=== PATIENT | female | born 1940 | race Caucasian/White ===

== ENCOUNTER 2018-02-22 17:03 | Emergency (ER) | payer OTHER ==
--- NOTE | 2018-02-22 18:09 | RAD REPORT ---
EXAM DESCRIPTION: CT - CTHCSPWOC - 02/22/2018 5:47 pm CLINICAL HISTORY: Fall, head and neck injury COMPARISON: None. TECHNIQUE: Axial 5 mm thick images of the head were obtained. Axial 2 mm thick images of the cervic al spine were obtained with sagittal and coronal reconstruction images generated and reviewed. All CT scans are performed using dose optimization technique as appropriate and may include automated exposure control or mA/KV adjustment according to patient size. FINDINGS: No intracranial hemorrhage, mass, edema or acute intracranial finding. No acute cortical based infarc tion. Advanced atrophy and chronic ischemic changes are present. Ventricular size is in proportion to volume loss. Physiologic and arterial calcifications are present. No extra-axial fluid collections. Mastoid air cells and paranasal sinuses are clear. No globe or orbit abnormality seen. Cervical body height and alignment are normal. C4-5 and C5-6 disc space narrowing present. No fractur e or acute bony abnormality. Spinal stenosis is present at C4-5 with very pronounced spurring. There is significant C5-6 central spinal stenosis as well. Mild to moderate C5-6 and prominent C4-5 foramin al stenosis. No facet joint alignment abnormality. Calcifications are present posterior to the spinou s processes. No acute spinous process injury. Central canal detail is inherently limited. No paraspinal mass or hematoma. IMPRESSION: Advanced atrophy and chronic ischemic change with no acute intracranial finding. Prominent cervical spine degenerative change. There is significant spinal stenosis at C4-5 and C5-6 a long with significant C4-5 foraminal stenosis. No fracture or acute cervical spine finding. Central canal detail is inherently limited.
--- NOTE | 2018-02-22 18:13 | RAD REPORT ---
EXAM DESCRIPTION: CT - Thorax Wo Con - 02/22/2018 5:47 pm CLINICAL HISTORY: Fall, chest injury, chest pain COMPARISON: Portable chest same date, CT chest July 2010 TECHNIQUE: Axial 5 mm thick images of the chest were obtained without IV contrast. All CT scans are performed using dose optimization technique as appropriate and may include automated exposure control or mA/KV adjustment according to patient size. FINDINGS: Scarring changes are present. No pulmonary contusion or acute lung parenchymal process. Po sterior left lung base and superior left upper lobe granulomas are present. Mediastinal and hilar gra nulomatous calcifications are present. No pleural thickening or pleural effusion. No pneumothorax. No abnormal mediastinal or hilar masses or lymphadenopathy seen. No pericardial thickening or effusio n. Overall assessment is limited in the absence of IV contrast. Thoracic spine degenerative changes are present. No displaced rib fracture seen. Acute thoracic compr ession fracture not suspected. No chest wall mass or abnormal axillary lymphadenopathy. IMPRESSION: No acute traumatic injuries to the chest. Nonacute findings detailed in the body of the report.
--- NOTE | 2018-02-22 18:35 | EDPHYS ---
Physician Documentation [facility] Name: Gayla Amado Age: 77 yrs Sex: Female : 1940 Arrival Date: 02/22/2018 Time: 17:09 Bed 26 Private MD: ED Physician Russell Tan HPI: 02/22 17:20 This 77 yrs old Female presents to ER via EMS with complaints of fall. cp 17:20 Details of fall: The patient fell from an upright position, while standing. cp 17:20 Onset: The symptoms/episode began/occurred today. Associated injuries: The patient cp sustained injury to the chest, specifically the left lateral chest, pain with movement. Severity of symptoms: in the emergency department the symptoms are unchanged. Historical: - Allergies: 17:37 Morphine; rk2 - PMHx: 17:37 Alzheimers; chest pain; Anxiety; constipation; COPD; GERD; Hypertension; rk2 Hypothyroidism; cognitive communication deficit; Osteoporosis; psychosis; - Immunization history:: Pneumococcal vaccine status is unknown, Flu vaccine status is unknown. - Social history:: Smoking status: unknown. ROS: 17:30 Constitutional: Negative for fever. cp 17:30 Cardiovascular: Positive for chest pain, of the left lateral chest. 17:30 Unable to obtain ROS due to baseline dementia. Exam: 17:35 Head/Face: Normocephalic, atraumatic. cp 17:35 Constitutional: The patient appears in no acute distress, alert, awake, non-diaphoretic, non-toxic, well developed, well nourished. 17:35 Eyes: Pupils: equal, round, and reactive to light and accomodation, Extraocular movements: intact throughout, Conjunctiva: normal, no exudate, no injection, Sclera: no appreciated abnormality, Lids and lashes: appear normal, bilaterally. 17:35 ENT: External ear(s): are unremarkable, Ear canal(s): are normal, clear, TM's: bulging, is not appreciated, bilaterally, dullness, bilaterally, erythema, is not appreciated, bilaterally, Nose: is normal, Mouth: is normal, Posterior pharynx: is normal, airway is patent. 17:35 Neck: C-spine: vertebral tenderness, is not appreciated, crepitus, is not appreciated, ROM/movement: is normal, is supple, without pain, no range of motions limitations, no nuchal rigidity. 17:35 Chest/axilla: Inspection: normal, Palpation: crepitus, is not appreciated, tenderness, that is mild, of the left lateral chest below breast. 17:35 Cardiovascular: Rate: bradycardic, Rhythm: regular. 17:35 Respiratory: the patient does not display signs of respiratory distress, Respirations: normal, no use of accessory muscles, no retractions, no splinting, no tachypnea, labored breathing, is not present, Breath sounds: are clear throughout, no decreased breath sounds, no stridor, no wheezing. 17:35 Abdomen/GI: Inspection: abdomen appears normal, Bowel sounds: active, all quadrants, Palpation: abdomen is soft and non-tender, in all quadrants, rebound tenderness, is not appreciated, voluntary guarding, is not appreciated, involuntary guarding, is not appreciated. 17:35 Back: vertebral tenderness, is not appreciated. 17:35 Skin: cellulitis, is not appreciated, injury, is not appreciated, no rash present. 17:35 Neuro: Orientation: no acute changes, per family, Mentation: no acute changes, per family, able to follow commands, Motor: moves all fours, strength is normal. Vital Signs: 17:09 BP 116 / 57; Pulse 53; Resp 17; Temp 98.1; Pulse Ox 98% ; rk2 18:15 BP 121 / 63; Pulse 53; Resp 17; Pulse Ox 98% ; rk2 MDM: 17:19 Patient medically screened. cp 18:00 Differential diagnosis: closed head injury, contusion, fracture, multiple trauma. cp 18:33 Data reviewed: vital signs, nurses notes, radiologic studies, CT scan. cp 18:33 Counseling: I had a detailed discussion with the patient and/or guardian regarding: the cp historical points, exam findings, and any diagnostic results supporting the discharge/admit diagnosis, radiology results, to return to the emergency department if symptoms worsen or persist or if there are any questions or concerns that arise at home. 02/22 17:12 Order name: CT Head C Spine; Complete Time: 18:28 cp 02/22 17:12 Order name: CT Chest Wo Con; Complete Time: 18:28 cp Administered Medications: 18:45 Drug: traMADol 50 mg Route: PO; rk2 18:54 Follow up: Response: Given \T\ DC rk2 Disposition: 19:45 Chart complete. 02/23 15:35 Co-signature as Attending Physician, Russell Tan MD I agree with the assessment and wa plan of care. Disposition: 02/22/18 18:34 Discharged to Home. Impression: Other slipping, tripping and stumbling and falls, Chest pain, unspecified - Left, s/p fall. - Condition is Stable. - Discharge Instructions: Chest Wall Pain, Fall Prevention and Home Safety. - Prescriptions for Tramadol 50 mg Oral Tablet - take 1 tablet by ORAL route every 8 hours as needed; 15 tablet. - Medication Reconciliation Form, Thank You Letter, Antibiotic Education, Prescription Opioid Use form. - Follow up: Private Physician; When: 1 - 2 days; Reason: Recheck today's complaints. - Problem is new. - Symptoms are unchanged. Signatures: Dispatcher [employer] EDMS Ej Garcia PA PA cp Appiah, William, MD MD wa Kidder, Rhonda RN RN rk2
--- NOTE | 2018-02-22 18:35 | ER ---
Nurse's Notes [facility] Name: Gayla Amado Age: 77 yrs Sex: Female : 1940 Arrival Date: 02/22/2018 Time: 17:09 Bed 26 Private MD: Diagnosis: Other slipping, tripping and stumbling and falls;Chest pain, unspecified-Left, s/p fall Presentation: 02/22 17:09 Presenting complaint: EMS states: Pt. arrived by EMS from [facility]... rk2 pt. was standing and lost her balance falling and hitting the left side of her chest. Pt. c/o of left side chest wall pain. Per EMS no LOC nor did pt. hit her head. Normal mental status is confused. Transition of care: patient was received from another setting of care (long-term care facility). Onset of symptoms was February 22, 2018. Care prior to arrival: None. 17:09 Method Of Arrival: EMS: [facility] rk2 17:09 Acuity: ALESSIA 4 rk2 Triage Assessment: 17:18 General: Appears in no apparent distress. Behavior is calm, cooperative. Pain: rk2 Complains of pain in Left rib pain. Neuro: Level of Consciousness is alert, obeys commands, Oriented to person. Respiratory: Airway is patent Respiratory effort is even, unlabored, Respiratory pattern is regular, symmetrical, Breath sounds are clear bilaterally. Derm: Skin is pink, warm \T\ dry. Musculoskeletal: Reports Left rib pain, no obvious deformity or bruising noted. Historical: - Allergies: 17:37 Morphine; rk2 - PMHx: 17:37 Alzheimers; chest pain; Anxiety; constipation; COPD; GERD; Hypertension; rk2 Hypothyroidism; cognitive communication deficit; Osteoporosis; psychosis; - Immunization history:: Pneumococcal vaccine status is unknown, Flu vaccine status is unknown. - Social history:: Smoking status: unknown. Screenin:17 Abuse screen: Denies threats or abuse. Nutritional screening: No deficits noted. rk2 Tuberculosis screening: No symptoms or risk factors identified. Fall Risk Fall in past 12 months (25 points). Secondary diagnosis (15 points). Assessment: 17:20 General: Appears in no apparent distress. Behavior is calm, cooperative. rk2 17:20 Pain: Complains of pain in Left side rib pain. rk2 18:50 Reassessment: Called report to [place] \T\ [facility]... pt. ambulated out rk2 with son \T\ her side. Vital Signs: 17:09 BP 116 / 57; Pulse 53; Resp 17; Temp 98.1; Pulse Ox 98% ; rk2 18:15 BP 121 / 63; Pulse 53; Resp 17; Pulse Ox 98% ; rk2 ED Course: 17:09 Patient arrived in ED. rk2 17:11 Ej Garcia PA is PHCP. cp 17:11 Russell Tan MD is Attending Physician. cp 17:11 Triage completed. rk2 17:17 Patient has correct armband on for positive identification. Placed in gown. Bed in low rk2 position. Call light in reach. Side rails up X2. 17:17 Arm band placed on. rk2 17:25 Shira Clancy, LEONA is Primary Nurse. rk2 17:[address] jg1 17:35 CT Chest Wo Con Sent. rk2 17:35 CT Head C Spine Sent. rk2 17:47 CT Head C Spine In Process Unspecified. EDMS 17:47 CT Chest Wo Con In Process Unspecified. EDMS 18:51 No provider procedures requiring assistance completed. Patient did not have IV access rk2 during this emergency room visit. Administered Medications: 18:45 Drug: traMADol 50 mg Route: PO; rk2 18:54 Follow up: Response: Given \T\ DC rk2 Outcome: 18:34 Discharge ordered by . cp 18:51 [facility] to [facility] rk2 18:51 Condition: good 18:51 Discharge instructions given to family, Prescriptions given X 1. 19:24 Patient left the ED. rk2 Signatures: Dispatcher [employer] EDErendira Ferreira jg1 Ej Garcia PA PA cp Shira Clancy, RN RN rk2
[2018-02-22] MEDS ORDERED: TRAMADOL HCL 50 MG TAB ONE (18:40)
[2018-02-22 19:29] VITALS: TEMP 98.1; O2SAT 98
[2018-02-22 19:30] VITALS: BP 121/63
== END 2018-02-22 19:24 | disposition home or self-care (01) ==
LOC: ER 17:03
DX: R07.9 Chest pain, unspecified (principal); W01.0XXA Fall on same level from slipping, tripping and stumbling without subsequent striking against object, initial encounter; Y93.89 Activity, other specified; Z88.5 Allergy status to narcotic agent; I10 Essential (primary) hypertension; G30.9 Alzheimer's disease, unspecified; F02.80 Dementia in other diseases classified elsewhere, unspecified severity, without behavioral disturbance, psychotic disturbance, mood disturbance, and anxiety
CPT/HCPCS: 70450; 71250; 72125; 99284

== ENCOUNTER 2018-10-12 21:37 | Emergency (ER) | payer OTHER ==
[2018-10-12 23:18] LABS: Absolute Lymphocytes (CBC) 1.1 K/uL (0.7-4.9); Absolute Monocytes 1.3 K/uL (0.1-1.3); Absolute Neutrophil 6.4 K/uL (1.8-8.0); Basophils % 0.6 % (0-1.3); Eosinophils % 0.9 % (0-4.4); Hematocrit 46.1 % (36.0-45.0); Lymphocytes % 12.3 % (15.3-44.8); MCH 31.6 pg (27.0-35.0); MCV 93.7 fL (80-100); MPV 8.4 fL (7.6-11.3); Monocytes % 14.3 % (3.3-12.3); RBC Red Blood Cell Count 4.92 M/uL (3.86-4.86)
[2018-10-12 23:19] LABS: Protime INR 1.13
[2018-10-12] MEDS ORDERED: NA CHLORIDE 0.9% 1,000 ML ONE (23:25)
[2018-10-12 23:31] LABS: ALT/SGPT 49 U/L (12-78); AST/SGOT 70 U/L (15-37); Albumin 3.3 g/dL (3.4-5.0); Alkaline Phosphatase 62 U/L (45-117); BUN Blood Urea Nitrogen 18 mg/dL (7-18); Bicarbonate 32 mmol/L (21-32); Bilirubin Direct 0.2 mg/dL (0-0.2); Bilirubin Total 0.5 mg/dL (0.2-1.0); Creatine Phosphokinase 39 U/L (26-192); Glucose Level 87 mg/dL (74-106); Lipase 279 U/L (73-393); Potassium 3.6 mmol/L (3.5-5.1); Protein, Total 7.7 g/dL (6.4-8.2); Sodium Level 141 mmol/L (136-145); Troponin (Emerg Dept Use Only) < 0.02 ng/mL (0.0-0.045)
[2018-10-12 23:36] LABS: Urine Blood 1+ (NEG); Urine Glucose NEGATIVE (NEG); Urine Protein 2+ (NEG)
[2018-10-13 00:13] LABS: Urine Bacteria LOADED /HPF (<20)
[2018-10-13 00:14] LABS: Urine Culture Reflex Order REFLEXED; Urine RBC <5 /HPF (NONE SEEN)
--- NOTE | 2018-10-13 00:58 | EDPHYS ---
Physician Documentation [facility] Name: Gayla Amado Age: 78 yrs Sex: Female : 1940 Arrival Date: 10/12/2018 Time: 21:44 Bed 2 Private MD: ED Physician Ap Montes HPI: 10/13 00:50 This 78 yrs old Female presents to ER via EMS with complaints of Altered gs Mental Status. 00:50 The patient presents with disorientation. Onset: The symptoms/episode began/occurred gs gradually, today. Possible causes: unknown. Associated signs and symptoms: Pertinent negatives: fever. Current symptoms: In the emergency department the patient's symptoms have improved, markedly. The patient has experienced similar episodes in the past, a few times. Historical: - Allergies: 10/12 22:29 Morphine; lp1 - Home Meds: 22:35 Acidophilus Oral cap daily for GI Distress/GERD [Active]; amlodipine 5 mg tab 1 tab lp1 once daily [Active]; anastrozole 1 mg Oral tab 1 tab once daily [Active]; aspirin 81 mg Oral chew 1 tab once daily [Active]; calcium carbonate-vitamin D3 600 mg(1,500mg) -400 unit oral tab twice a day [Active]; Claritin 10 mg Oral tab 1 tab daily prn [Active]; Depakote 500 mg Oral TbEC 1 tab 2 times per day [Active]; donepezil 10 mg Oral tab 2 tab nightly [Active]; Fosamax 70 mg Oral tab 1 tab once wkly [Active]; levothyroxine 200 mcg oral tab once daily [Active]; levothyroxine 25 mcg tab 1 tab once daily [Active]; Metamucil Smooth Texture Oral twice a day [Active]; Miralax 17 gram/dose Oral powd Q8H PRN [Active]; Namenda XR 28 mg Oral CSpX 1 cap once daily [Active]; omeprazole 20 mg oral cpDR once daily [Active]; Spiriva with HandiHaler 18 mcg inhalation CpDv 1 cap once daily [Active]; tizanidine 4 mg Oral tab nightly [Active]; Vasotec 5 mg Oral tab 1 tab once daily [Active]; diphenhydramine HCl 25 mg Oral tab q6h prn [Active]; - PMHx: 22:29 Alzheimers; Anxiety; chest pain; cognitive communication deficit; constipation; COPD; lp1 GERD; Hypertension; Hypothyroidism; Osteoporosis; psychosis; - Immunization history:: Adult Immunizations up to date. - Social history:: Smoking status: unknown. - Ebola Screening: : No symptoms or risks identified at this time. ROS: 10/13 00:50 Unable to obtain ROS due to baseline dementia. gs Exam: 00:50 Head/Face: Normocephalic, atraumatic. Eyes: Pupils equal round and reactive to light, gs extra-ocular motions intact. Lids and lashes normal. Conjunctiva and sclera are non-icteric and not injected. Cornea within normal limits. Periorbital areas with no swelling, redness, or edema. ENT: Nares patent. No nasal discharge, no septal abnormalities noted. Tympanic membranes are normal and external auditory canals are clear. Oropharynx with no redness, swelling, or masses, exudates, or evidence of obstruction, uvula midline. Mucous membranes moist. Neck: Trachea midline, no thyromegaly or masses palpated, and no cervical lymphadenopathy. Supple, full range of motion without nuchal rigidity, or vertebral point tenderness. No Meningismus. Chest/axilla: Normal chest wall appearance and motion. Nontender with no deformity. No lesions are appreciated. Cardiovascular: Regular rate and rhythm with a normal S1 and S2. No gallops, murmurs, or rubs. Normal PMI, no JVD. No pulse deficits. 00:50 Respiratory: Lungs have equal breath sounds bilaterally, clear to auscultation and percussion. No rales, rhonchi or wheezes noted. No increased work of breathing, no retractions or nasal flaring. Abdomen/GI: Soft, non-tender, with normal bowel sounds. No distension or tympany. No guarding or rebound. No evidence of tenderness throughout. Back: No spinal tenderness. No costovertebral tenderness. Full range of motion. Skin: Warm, dry with normal turgor. Normal color with no rashes, no lesions, and no evidence of cellulitis. MS/ Extremity: Pulses equal, no cyanosis. Neurovascular intact. Full, normal range of motion. Neuro: Awake and alert, GCS 15, oriented to person, place, time, and situation. Cranial nerves II-XII grossly intact. Motor strength 5/5 in all extremities. Sensory grossly intact. Cerebellar exam normal. Normal gait. 00:50 Constitutional: The patient appears alert, awake. 00:50 ECG was reviewed by the Attending Physician. Vital Signs: 10/12 21:55 BP 139 / 53; Pulse 67; Resp 17; Temp 97.6(O); Pulse Ox 97% on R/A; Weight 68.04 kg; lp1 23:30 BP 158 / 89; Pulse 84; Resp 20; Pulse Ox 97% on R/A; lp1 10/13 01:30 BP 172 / 73; Pulse 85; Resp 19; Pulse Ox 96% on R/A; lp1 MDM: 10/12 22:02 Patient medically screened. 10/13 00:50 Differential Diagnosis: electrolyte abnormality, pneumonia, UTI. Data reviewed: vital gs signs, nurses notes. Response to treatment: the patient's symptoms have markedly improved after treatment, and as a result, I will discharge patient. 10/12 22:05 Order name: Basic Metabolic Panel 10/12 22:05 Order name: Blood Culture Adult (2) 10/12 22:05 Order name: CBC with Diff 10/12 22:05 Order name: CPK 10/12 22:05 Order name: Lactate 10/12 22:05 Order name: LFT's 10/12 22:05 Order name: Lipase 10/12 22:05 Order name: Procalcitonin 10/12 22:05 Order name: Protime (+inr) 10/12 22:05 Order name: Troponin (emerg Dept Use Only) 10/12 22:05 Order name: Urine Microscopic Only 10/12 22:31 Order name: Urine Dipstick--Ancillary (enter results) 2 10/12 23:19 Order name: CBC with Automated Diff; Complete Time: 00:49 EDMS 10/12 23:20 Order name: Protime (+INR); Complete Time: 00:49 EDMS 10/12 22:05 Order name: Chest Single View XRAY 10/12 22:05 Order name: Accucheck; Complete Time: 22:40 10/12 22:05 Order name: Cardiac monitoring; Complete Time: 22:40 10/12 22:05 Order name: CT Head Brain wo Cont 10/12 23:31 Order name: Basic Metabolic Panel; Complete Time: 00:49 EDMS 10/12 23:31 Order name: Liver (Hepatic) Function; Complete Time: 00:49 EDMS 10/12 23:31 Order name: Creatine Phosphokinase; Complete Time: 00:49 EDMS 10/12 23:31 Order name: Troponin (Emerg Dept Use Only); Complete Time: 00:50 EDMS 10/12 23:31 Order name: Lipase; Complete Time: 00:50 EDMS 10/12 23:35 Order name: Lactate; Complete Time: 00:50 EDMS 10/12 23:37 Order name: Urine Dipstick-Ancillary; Complete Time: 00:49 EDMS 10/13 00:15 Order name: Urine Microscopic Only; Complete Time: 00:49 EDMS 10/13 00:55 Order name: Procalcitonin; Complete Time: 00:58 EDMS 10/13 02:41 Order name: Glucose, Ancillary Testing EDMS 10/12 22:05 Order name: EKG - Nurse/Tech; Complete Time: 00:53 10/12 22:05 Order name: IV Saline Lock - Large Bore; Complete Time: 23:26 gs 10/12 22:05 Order name: Labs collected and sent; Complete Time: 23:26 gs 10/12 22:05 Order name: O2 Per Protocol; Complete Time: 22:40 10/12 22:05 Order name: O2 Sat Monitoring; Complete Time: 22:40 gs 10/12 22:05 Order name: Urine Dipstick-Ancillary (obtain specimen); Complete Time: 22:40 gs EC:50 Rate is 84 beats/min. Rhythm is regular. QRS interval is normal. QT interval is normal. gs T waves are Flattened. Clinical impression: NSR w/ Non-specific ST/T Changes. Interpreted by me. Administered Medications: 10/12 23:26 Drug: NS 0.9% 1000 ml Route: IV; Rate: 1 bolus; Site: right antecubital; lp1 10/13 01:10 Drug: Rocephin - (cefTRIAXone) 1 grams Route: IVPB; Infused Over: 30 mins; Site: right lp1 antecubital; 02:00 Follow up: IV Status: Completed infusion; IV Intake: 10ml lp1 Point of Care Testing: Blood Glucose: 10/12 22:29 Blood Glucose: 107 mg/dL; lp1 Ranges: Critical Glucose Levels:Adult <50 mg/dl or >400 mg/dl <40 mg/dl or >180 mg/dl Disposition: 10/13/18 00:57 Discharged to Home. Impression: Cystitis. - Condition is Stable. - Discharge Instructions: Urinary Tract Infection, Adult. - Prescriptions for Keflex 500 mg Oral Capsule - take 1 capsule by ORAL route 3 times per day for 7 days; 21 capsule. - Medication Reconciliation Form, Thank You Letter, Antibiotic Education, Prescription Opioid Use form. - Follow up: Private Physician; When: 1 - 2 days; Reason: Re-evaluation by your physician. Signatures: Dispatcher [employer] Joseline Sorensen RN RN lp1 Ap Montes MD MD gs Corrections: (The following items were deleted from the chart) 10/13 04:05 00:57 10/13/2018 00:57 Discharged to Home. Impression: Cystitis. Condition is Stable. lp1 Forms are Medication Reconciliation Form, Thank You Letter, Antibiotic Education, Prescription Opioid Use. Follow up: Private Physician; When: 1 - 2 days; Reason: Re-evaluation by your physician. gs
--- NOTE | 2018-10-13 00:58 | ER ---
Nurse's Notes [facility] Name: Gayla Amado Age: 78 yrs Sex: Female : 1940 Arrival Date: 10/12/2018 Time: 21:44 Bed 2 Private MD: Diagnosis: Cystitis Presentation: 10/12 21:44 Presenting complaint: EMS states: Per nursing staff, patient altered, change from lp1 baseline to agitated and altered; Normally pleasantly confused; States chest x-ray was negative, patient has been running low grade fever x 2 days. Transition of care: patient was not received from another setting of care. Onset of symptoms was October 12, 2018. Risk Assessment: Do you want to hurt yourself or someone else? Patient reports no desire to harm self or others. Initial Sepsis Screen: Does the patient meet any 2 criteria? No. Patient's initial sepsis screen is negative. Does the patient have a suspected source of infection? No. Patient's initial sepsis screen is negative. Care prior to arrival: None. 21:44 Method Of Arrival: EMS: [facility] lp1 21:44 Acuity: ALESSIA 3 lp1 Historical: - Allergies: 22:29 Morphine; lp1 - Home Meds: 22:35 Acidophilus Oral cap daily for GI Distress/GERD [Active]; amlodipine 5 mg tab 1 tab lp1 once daily [Active]; anastrozole 1 mg Oral tab 1 tab once daily [Active]; aspirin 81 mg Oral chew 1 tab once daily [Active]; calcium carbonate-vitamin D3 600 mg(1,500mg) -400 unit oral tab twice a day [Active]; Claritin 10 mg Oral tab 1 tab daily prn [Active]; Depakote 500 mg Oral TbEC 1 tab 2 times per day [Active]; donepezil 10 mg Oral tab 2 tab nightly [Active]; Fosamax 70 mg Oral tab 1 tab once wkly [Active]; levothyroxine 200 mcg oral tab once daily [Active]; levothyroxine 25 mcg tab 1 tab once daily [Active]; Metamucil Smooth Texture Oral twice a day [Active]; Miralax 17 gram/dose Oral powd Q8H PRN [Active]; Namenda XR 28 mg Oral CSpX 1 cap once daily [Active]; omeprazole 20 mg oral cpDR once daily [Active]; Spiriva with HandiHaler 18 mcg inhalation CpDv 1 cap once daily [Active]; tizanidine 4 mg Oral tab nightly [Active]; Vasotec 5 mg Oral tab 1 tab once daily [Active]; diphenhydramine HCl 25 mg Oral tab q6h prn [Active]; - PMHx: 22:29 Alzheimers; Anxiety; chest pain; cognitive communication deficit; constipation; COPD; lp1 GERD; Hypertension; Hypothyroidism; Osteoporosis; psychosis; - Immunization history:: Adult Immunizations up to date. - Social history:: Smoking status: unknown. - Ebola Screening: : No symptoms or risks identified at this time. Screenin:36 Abuse screen: Denies threats or abuse. Denies injuries from another. Nutritional lp1 screening: No deficits noted. Tuberculosis screening: No symptoms or risk factors identified. Fall Risk Total Ibrahim Fall Scale indicates High Risk Score (45 or more points). Fall prevention measures have been instituted. Side Rails Up X 2 Frequent Obs/Assessments Occuring As available patient and family educated on Fall Prevention Program and Strategies. Assessment: 22:00 General: Appears in no apparent distress. Behavior is calm. Pain: Denies pain. Neuro: lp1 Level of Consciousness is awake, obeys commands, Oriented to person, Bilingual Legal Assistant are equal bilaterally Pupils are PERRLA. Cardiovascular: Patient's skin is warm and dry. Respiratory: Respiratory effort is even, Respiratory pattern is regular, Breath sounds with crackles in left upper lobe and left lower lobe. GI: Abdomen is non-distended. : Urine is cloudy, foul smell. EENT: No deficits noted. Derm: Skin is fragile, is thin, Skin is dry, Skin is normal. Musculoskeletal: No deficits noted. 23:00 Reassessment: Brief changed, blankets given; Patient fidgeting in bed. lp1 10/13 00:00 Reassessment: Patient pulling at cords connected to monitor; reoriented at this time. lp1 01:15 Reassessment: Patient's brief changed at this time; attempting to get out of bed, lp1 patient reoriented and repositioned. 01:40 Reassessment: Report called to Shonda at [facility]; states she will call back lp1 with details on transportation back to facility. 02:00 Reassessment: Shonda called back, states leaving voicemail for [employer], but may lp1 not transport patient until later this morning. 02:30 Reassessment: Shonda notified of EMS arranging for transport for patient. lp1 03:30 Reassessment: Patient appears in no apparent distress at this time. Patient lying in lp1 bed, calm; fidgeting with hands. 04:04 Reassessment: EMS at bedside for transfer. lp1 Vital Signs: 10/12 21:55 BP 139 / 53; Pulse 67; Resp 17; Temp 97.6(O); Pulse Ox 97% on R/A; Weight 68.04 kg; lp1 23:30 BP 158 / 89; Pulse 84; Resp 20; Pulse Ox 97% on R/A; lp1 10/13 01:30 BP 172 / 73; Pulse 85; Resp 19; Pulse Ox 96% on R/A; lp1 ED Course: 10/12 21:44 Patient arrived in ED. lp1 21:49 Ap Montes MD is Attending Physician. gs 21:54 Triage completed. lp1 21:54 Arm band placed on left wrist. lp1 22:13 Joseline Beebe, LEONA is Primary Nurse. lp1 22:27 Missed attempt(s): 20 gauge in left forearm. lp1 22:36 Patient has correct armband on for positive identification. Side rails up X2. Cardiac lp1 monitor on. Pulse ox on. NIBP on. 22:44 Radiology exam delayed due to PT UNABLE TO COME TO CT AT THIS TIME. vm2 23:42 Missed attempt(s): 22 gauge in right antecubital area. Bleeding controlled, band aid oe applied, catheter tip intact. 23:[address] via stretcher. kw1 23:45 Inserted saline lock: 22 gauge in right antecubital area, using aseptic technique. oe 10/13 00:11 CT completed. Pt tolerated procedure poorly. Patient moved back from [place]. kw1 01:47 No provider procedures requiring assistance completed. IV discontinued, No lp1 redness/swelling at site. Pressure dressing applied. Administered Medications: 10/12 23:26 Drug: NS 0.9% 1000 ml Route: IV; Rate: 1 bolus; Site: right antecubital; lp1 10/13 01:10 Drug: Rocephin - (cefTRIAXone) 1 grams Route: IVPB; Infused Over: 30 mins; Site: right lp1 antecubital; 02:00 Follow up: IV Status: Completed infusion; IV Intake: 10ml [facility] Point of Care Testing: Blood Glucose: 10/12 22:29 Blood Glucose: 107 mg/dL; 1 Ranges: Intake: 10/13 02:00 IV: 10ml; Total: 10ml. 1 Outcome: 00:57 Discharge ordered by . 01:47 Condition: good [facility] 04:05 Discharged to senior care. Report called to Shonda [facility] 04:05 Instructed on discharge instructions. 04:05 Patient left the ED. lp1 Addendum: 10/18/2018 08:17 Addendum: Culture Results: Positive urine culture. Bacteria is resistant to, has i w intermediate sensitivity, or is not tested against prescribed antibiotics. Report given to YUNIOR for further evaluation and then to rental clerk for follow up with patient. Phone call Attempt #1 culture report faxed to [facility]. Signatures: Magali Zuluaga RN RN Joseline Beebe RN RN [facility] Arnoldo Plunkett Guillermina Deluna [facility] Ap Montes MD MD gs Wilhelm, Kimberly kw1 Corrections: (The following items were deleted from the chart) 10/12 22:44 22:40 Patient moved to [place] via stretcher. [place] [id number] 23:49 23:42 Missed attempt(s): 22 gauge antecubital area. Bleeding controlled, band aid oe applied, catheter tip intact. oe 10/13 01:53 01:40 Reassessment: Report called to Shonda at [place] [id number]
[2018-10-13] MEDS ORDERED: CEFTRIAXONE/SWI 1gm 1 GM/10 ML SYR ONE (01:11)
--- NOTE | 2018-10-13 08:27 | EKG ---
Test Date: 2018-10-13 Test Time: 00:14:36 Dev Manager: VICTORIANO MEASUREMENT RESULTS: Intervals: Rate: 84 WA: 134 QRSD: 80 QT: 380 QTc: 449 [place]: P: 63 WA: 134 QRS: 63 T: 64 INTERPRETIVE STATEMENTS: Normal sinus rhythm Cannot rule out Anterior infarct, age undetermined Abnormal ECG Compared to ECG 11/20/2017 17:19:11 questionable myocardial infarct finding now present Sinus bradycardia no longer present Electronically Signed On 10-13-18 08:27:02 EVENT SPECIALIST FOOD DEMONSTRATOR by Anam Rojas
--- NOTE | 2018-10-13 11:52 | RAD REPORT ---
EXAM DESCRIPTION: CT - Head Brain Wo Cont - 10/13/2018 4:39 am CLINICAL HISTORY: DECLINING STATE Drowsiness COMPARISON: Head Brain Wo Cont dated 09/03/2017; Head Brain Wo Cont dated 09/03/2017 TECHNIQUE: All CT scans are performed using dose optimization technique as appropriate and may inclu de automated exposure control or mA/KV adjustment according to patient size. FINDINGS: No intracranial hemorrhage, hydrocephalus or extra-axial fluid collection.Advanced general ized brain atrophy is present with advanced periventricular and deep white matter chronic microvascul ar ischemic changes.No areas of brain edema or evidence of midline shift. Mild ethmoid sinus opacification noted. The calvarium is intact. IMPRESSION: No acute intracranial abnormality.
--- NOTE | 2018-10-13 12:16 | RAD REPORT ---
EXAM DESCRIPTION: RAD - Chest Single View - 10/12/2018 10:43 pm CLINICAL HISTORY: MALAISE Chest pain. COMPARISON: Chest Single View dated 11/20/2017; Chest Single View dated 09/03/2017; CHEST SINGLE VIEW dated 01/16/2015; CHEST SINGLE VIEW dated 11/28/2014 FINDINGS: Portable technique limits examination quality. The lungs are grossly clear. The heart is normal in size. No displaced fractures. IMPRESSION: No acute intrathoracic process suspected.
[2018-10-13 14:09] VITALS: TEMP 97.6
[2018-10-13 14:18] VITALS: BP 172/73; O2SAT 96
== END 2018-10-13 04:05 | disposition home or self-care (01) ==
LOC: ER 21:37
DX: N30.90 Cystitis, unspecified without hematuria (principal); I10 Essential (primary) hypertension; J44.9 Chronic obstructive pulmonary disease, unspecified; E03.9 Hypothyroidism, unspecified; G30.9 Alzheimer's disease, unspecified; F02.80 Dementia in other diseases classified elsewhere, unspecified severity, without behavioral disturbance, psychotic disturbance, mood disturbance, and anxiety; Z79.82 Long term (current) use of aspirin; Z88.5 Allergy status to narcotic agent
CPT/HCPCS: 36415; 70450; 71045; 80048; 80076; 82550; 82962; 83605; 83690; 84145; 84484; 85025; 85610; 87040 ×2; 87077; 87086; 87088; 87186; 93005; 96365; 99285; J0696; J7030; 81003; 81015

== ENCOUNTER 2019-02-11 13:21 | Inpatient (IN) | payer OTHER ==
[2019-02-11] MEDS ORDERED: NA CHLORIDE 0.9% 2,000 ML ONE (13:51)
--- NOTE | 2019-02-11 14:10 | RAD REPORT ---
EXAM DESCRIPTION: Michelle Single View02/11/2019 2:02 pm CLINICAL HISTORY: Chest pain COMPARISON: September 2018 FINDINGS: The right basilar consolidation. Left lung probably is clear of acute infiltrate The heart is mildly enlarged IMPRESSION: Right basilar pneumonia
[2019-02-11 14:31] LABS: Absolute Lymphocytes (CBC) 1.7 K/uL (0.7-4.9); Absolute Monocytes 2.7 K/uL (0.1-1.3); Absolute Neutrophil 22.2 K/uL (1.8-8.0); Basophils % 0.6 % (0-1.3); Eosinophils % 0.1 % (0-4.4); Hematocrit 49.5 % (36.0-45.0); Lymphocytes % 6.4 % (15.3-44.8); MPV 8.1 fL (7.6-11.3); Monocytes % 10.1 % (3.3-12.3); RBC Red Blood Cell Count 5.09 M/uL (3.86-4.86)
[2019-02-11 15:39] LABS: Protime INR 1.34
[2019-02-11] MEDS ORDERED: CEFEPIME/SWI 2gm 2 GM/20 ML SYR IV ONE (15:45)
[2019-02-11] MEDS ORDERED: VANCOMYCIN/NS 1 gm 1 GM/250 ML BAG IV ONE ×2 (15:45→20:00)
[2019-02-11 15:46] LABS: Albumin 1.9 g/dL (3.4-5.0); Bilirubin Direct 0.4 mg/dL (0-0.2); Bilirubin Total 0.8 mg/dL (0.2-1.0); CKMB Creatine Kinase MB 4.9 ng/mL (0.3-3.6); Potassium 3.5 mmol/L (3.5-5.1); Protein, Total 8.3 g/dL (6.4-8.2)
[2019-02-11 15:54] LABS: Troponin (Emerg Dept Use Only) 0.59 ng/mL (0.0-0.045)
--- NOTE | 2019-02-11 16:19 | EDPHYS ---
Physician Documentation [facility] Name: Gayla Amado Age: 78 yrs Sex: Female : 1940 Arrival Date: 02/11/2019 Time: 13:22 Bed 8 Private MD: ED Physician Ej Balbuena HPI: 02/11 14:53 This 78 yrs old Female presents to ER via EMS with complaints of Respiratory saundra Distress. 14:53 The patient has shortness of breath at rest. Onset: The symptoms/episode began/occurred saundra 2 day(s) ago. Duration: The symptoms are continuous, and are steadily getting worse. The patient's shortness of breath has no apparent modifying factors. The patient or guardian reports cough. Modifying factors: The symptoms are alleviated by nothing. the symptoms are aggravated by lying flat. The patient presents with confusion, decreased mental status, trouble concentrating. Onset: The symptoms/episode began/occurred 2 day(s) ago. Possible causes: sepsis, the patient has a known history of pneumonia. Associated signs and symptoms: Pertinent positives: non-productive cough, dizziness, nausea. Historical: - Allergies: 13:30 Morphine; hb - Home Meds: 13:30 Acidophilus Oral cap daily for GI Distress/GERD [Active]; amlodipine 5 mg tab 1 tab hb once daily [Active]; anastrozole 1 mg Oral tab 1 tab once daily [Active]; aspirin 81 mg Oral chew 1 tab once daily [Active]; calcium carbonate-vitamin D3 600 mg(1,500mg) -400 unit Oral tab twice a day [Active]; Claritin 10 mg Oral tab 1 tab daily prn [Active]; diphenhydramine HCl 25 mg Oral tab q6h prn [Active]; donepezil 10 mg Oral tab 2 tab nightly [Active]; Depakote 500 mg Oral TbEC 1 tab 2 times per day [Active]; Fosamax 70 mg Oral tab 1 tab once wkly [Active]; levothyroxine 25 mcg tab 1 tab once daily [Active]; levothyroxine 200 mcg tab once daily [Active]; Metamucil Smooth Texture Oral twice a day [Active]; Miralax 17 gram/dose Oral powd Q8H PRN [Active]; Namenda XR 28 mg Oral CSpX 1 cap once daily [Active]; omeprazole 20 mg Oral cpDR once daily [Active]; Spiriva with HandiHaler 18 mcg inhalation CpDv 1 cap once daily [Active]; tizanidine 4 mg Oral tab nightly [Active]; Vasotec 5 mg Oral tab 1 tab once daily [Active]; - PMHx: 13:30 Anxiety; chest pain; cognitive communication deficit; constipation; COPD; GERD; hb Alzheimers; Hypertension; Hypothyroidism; Osteoporosis; psychosis; - Immunization history:: Adult Immunizations up to date. - Social history:: Smoking status: Patient/guardian denies using tobacco. - Ebola Screening: : No symptoms or risks identified at this time. ROS: 14:53 Eyes: Negative for injury, pain, redness, and discharge, ENT: Negative for injury, saundra pain, and discharge, Neck: Negative for injury, pain, and swelling, Cardiovascular: Negative for chest pain, palpitations, and edema, Abdomen/GI: Negative for abdominal pain, nausea, vomiting, diarrhea, and constipation, Back: Negative for injury and pain, : Negative for injury, bleeding, discharge, and swelling, MS/Extremity: Negative for injury and deformity, Skin: Negative for injury, rash, and discoloration, Psych: Negative for depression, anxiety, suicide ideation, homicidal ideation, and hallucinations, Allergy/Immunology: Negative for hives, rash, and allergies, Endocrine: Negative for neck swelling, polydipsia, polyuria, polyphagia, and marked weight changes, Hematologic/Lymphatic: Negative for swollen nodes, abnormal bleeding, and unusual bruising. 14:53 Constitutional: Positive for fatigue, malaise. 14:53 Respiratory: Positive for cough, orthopnea, shortness of breath, wheezing, inspiratory, expiratory. 14:53 Neuro: Positive for altered mental status, weakness, decerased loc all weekend. Exam: 14:53 Constitutional: This is a well developed, well nourished patient who is awake, alert, saundra and in no acute distress. Neck: Trachea midline, no thyromegaly or masses palpated, and no cervical lymphadenopathy. Supple, full range of motion without nuchal rigidity, or vertebral point tenderness. No Meningismus. 14:53 Constitutional: The patient appears in obvious distress, moderately distressed. 14:53 Cardiovascular: Rate: tachycardic, Rhythm: regular, Pulses: Pulses are 4+ in bilateral radial, brachial, femoral, popliteal, posterior tibial and and dorsalis pedis arteries.. Heart sounds: normal, Edema: is not appreciated, JVD: is not appreciated. Vital Signs: 13:22 BP 147 / 85; Pulse 107; Resp 32; Temp 98.2; Pulse Ox 85% on 100% Non-rebreather mask; hb Weight 82.55 kg; 14:00 BP 126 / 85; Pulse 118; Resp 31; Pulse Ox 94% on 40% BiPAP; hb 15:00 BP 108 / 57; Pulse 107; Resp 30; Pulse Ox 92% on 75% BiPAP; hb 16:00 BP 114 / 79; Pulse 93; Resp 26; Pulse Ox 90% on 75% BiPAP; hb 17:00 BP 131 / 55; Pulse 95; Resp 21; Pulse Ox 89% on 75% BiPAP; hb 18:15 BP 120 / 57; Pulse 97; Resp 23; Pulse Ox 88% on 75% BiPAP; hb 15:00 BIPAP 15/9, R12, FiO2 75% hb MDM: 13:33 Patient medically screened. [facility] 14:58 Data reviewed: vital signs, nurses notes, lab test result(s), EKG, radiologic studies, saundra plain films. 02/11 13:32 Order name: Basic Metabolic Panel; Complete Time: 16:05 hb 02/11 13:32 Order name: Blood Culture Adult (2) hb 02/11 13:32 Order name: CBC with Diff hb 02/11 13:32 Order name: Ckmb; Complete Time: 16:05 hb 02/11 13:32 Order name: CPK; Complete Time: 16:05 hb 02/11 13:32 Order name: Lactate; Complete Time: 15:07 hb 02/11 13:32 Order name: LFT's; Complete Time: 16:05 hb 02/11 13:32 Order name: Lipase; Complete Time: 16:05 hb 02/11 13:32 Order name: Procalcitonin; Complete Time: 16:05 hb 02/11 13:32 Order name: Protime (+inr); Complete Time: 16:13 hb 02/11 13:32 Order name: Ptt, Activated; Complete Time: 16:13 hb 02/11 13:32 Order name: Troponin (emerg Dept Use Only); Complete Time: 16:05 hb 02/11 13:32 Order name: Urine Microscopic Only hb 02/11 13:39 Order name: Depakote; Complete Time: 15:07 [facility] 02/11 13:32 Order name: Chest Single View XRAY; Complete Time: 15:07 hb 02/11 13:32 Order name: Accucheck; Complete Time: 14:02 hb 02/11 13:32 Order name: Cardiac monitoring; Complete Time: 14:02 hb 02/11 13:32 Order name: EKG - Nurse/Tech; Complete Time: 14:02 hb 02/11 13:32 Order name: IV Saline Lock - Large Bore; Complete Time: 14:02 hb 02/11 13:32 Order name: Labs collected and sent; Complete Time: 14:02 hb 02/11 13:32 Order name: O2 Per Protocol; Complete Time: 14:02 hb 02/11 13:32 Order name: O2 Sat Monitoring; Complete Time: 14:02 hb 02/11 14:54 Order name: Manual Differential [facility] 02/11 14:59 Order name: BIPAP [facility] 02/11 16:49 Order name: Urine Dipstick--Ancillary (enter results) 02/11 18:19 Order name: Lactate Sepsis 2 HR Follow-up [facility] 02/11 20:18 Order name: Urine Dipstick-Ancillary [facility] 02/11 13:32 Order name: Urine Dipstick-Ancillary (obtain specimen); Complete Time: 16:50 02/11 14:59 Order name: Benjamin; Complete Time: 16:50 [facility] 02/11 15:01 Order name: Labs - recollect needed; Complete Time: 15:28 bd Administered Medications: 13:50 Drug: NS 0.9% (30 ml/kg) 30 ml/kg Route: IV; Rate: bolus; Site: right antecubital; hb 20:13 Follow up: IV Status: Completed infusion; IV Intake: 2000ml lp1 16:50 Drug: Cefepime 2 grams Route: IVPB; Rate: 200 ml/hr; Infused Over: 30 mins; Site: left hb antecubital; 16:50 Drug: vancoMYCIN 1 grams Route: IVPB; Infused Over: 2 hrs; Site: left antecubital; hb Disposition: 02/11/19 16:18 Hospitalization ordered by Esteban Alexandra for Inpatient Admission. Preliminary diagnosis are Dyspnea, Hypoxemia, Pneumonia due to other specified bacteria - right lower lobe pneumonia, Dehydration, Do not resuscitate. - Bed requested for Telemetry/MedSurg (Inpatient). - Status is Inpatient Admission. lp1 - Condition is Serious. - Problem is new. - Symptoms have improved. UTI on Admission? No Signatures: Dispatcher [employer] EDMS Demi Copeland Diana, RN RN Ej Balbuena MD MD cha Pena, Laura, RN RN [facility] Daniela Pompa RN RN Corrections: (The following items were deleted from the chart) 16:21 16:18 Hospitalization Ordered by Esteban Alexandra DO for Inpatient Admission. Preliminary [facility] diagnosis is Dyspnea; Hypoxemia; Pneumonia due to other specified bacteria - right lower lobe pneumonia; Dehydration. Bed requested for Telemetry/MedSurg (Inpatient). Status is Inpatient Admission. Condition is Serious. Problem is new. Symptoms have improved. UTI on Admission? No. saundra 18:32 16:21 02/11/2019 16:18 Hospitalization Ordered by Esteban Alexandra DO for Inpatient dw Admission. Preliminary diagnosis is Dyspnea; Hypoxemia; Pneumonia due to other specified bacteria - right lower lobe pneumonia; Dehydration; Do not resuscitate. Bed requested for Telemetry/MedSurg (Inpatient). Status is Inpatient Admission. Condition is Serious. Problem is new. Symptoms have improved. UTI on Admission? No. saundra 21:28 18:32 02/11/2019 16:18 Hospitalization Ordered by Esteban Alexandra DO for Inpatient lp1 Admission. Preliminary diagnosis is Dyspnea; Hypoxemia; Pneumonia due to other specified bacteria - right lower lobe pneumonia; Dehydration; Do not resuscitate. Bed requested for Telemetry/MedSurg (Inpatient). Status is Inpatient Admission. Condition is Serious. Problem is new. Symptoms have improved. UTI on Admission? No. dw
--- NOTE | 2019-02-11 16:19 | ER ---
Nurse's Notes [facility] Name: Gayla Amado Age: 78 yrs Sex: Female : 1940 Arrival Date: 02/11/2019 Time: 13:22 Bed 8 Private MD: Diagnosis: Dyspnea;Hypoxemia;Pneumonia due to other specified bacteria-right lower lobe pneumonia;Dehydration;Do not resuscitate Presentation: 02/11 13:23 Presenting complaint: EMS states: custodial reported SOB since this morning. On hb scene SpO2 79% on RA, responsive to pain only. Recent dx of pneumonia. AOx1 at baseline. Transition of care: patient was not received from another setting of care. Onset of symptoms was February 11, 2019. Risk Assessment: Do you want to hurt yourself or someone else? Patient reports no desire to harm self or others. Care prior to arrival: Medication(s) given: DuoNeb. 13:23 Method Of Arrival: EMS: [facility] hb 13:23 Acuity: ALESSIA 1 hb 15:00 Initial Sepsis Screen: Does the patient meet any 2 criteria? RR > 20 per min. Altered hb Mental Status. HR > 90 bpm. Yes Does the patient have a suspected source of infection? Yes: Productive cough/pneumonia If YES to both, name of provider notified: Ej Balbuena MD Historical: - Allergies: 13:30 Morphine; hb - Home Meds: 13:30 Acidophilus Oral cap daily for GI Distress/GERD [Active]; amlodipine 5 mg tab 1 tab hb once daily [Active]; anastrozole 1 mg Oral tab 1 tab once daily [Active]; aspirin 81 mg Oral chew 1 tab once daily [Active]; calcium carbonate-vitamin D3 600 mg(1,500mg) -400 unit Oral tab twice a day [Active]; Claritin 10 mg Oral tab 1 tab daily prn [Active]; diphenhydramine HCl 25 mg Oral tab q6h prn [Active]; donepezil 10 mg Oral tab 2 tab nightly [Active]; Depakote 500 mg Oral TbEC 1 tab 2 times per day [Active]; Fosamax 70 mg Oral tab 1 tab once wkly [Active]; levothyroxine 25 mcg tab 1 tab once daily [Active]; levothyroxine 200 mcg tab once daily [Active]; Metamucil Smooth Texture Oral twice a day [Active]; Miralax 17 gram/dose Oral powd Q8H PRN [Active]; Namenda XR 28 mg Oral CSpX 1 cap once daily [Active]; omeprazole 20 mg Oral cpDR once daily [Active]; Spiriva with HandiHaler 18 mcg inhalation CpDv 1 cap once daily [Active]; tizanidine 4 mg Oral tab nightly [Active]; Vasotec 5 mg Oral tab 1 tab once daily [Active]; - PMHx: 13:30 Anxiety; chest pain; cognitive communication deficit; constipation; COPD; GERD; hb Alzheimers; Hypertension; Hypothyroidism; Osteoporosis; psychosis; - Immunization history:: Adult Immunizations up to date. - Social history:: Smoking status: Patient/guardian denies using tobacco. - Ebola Screening: : No symptoms or risks identified at this time. Screenin:30 Abuse screen: no s/s abuse. Nutritional screening: No deficits noted. Tuberculosis hb screening: No symptoms or risk factors identified. 13:45 Fall Risk Total Ibrahim Fall Scale indicates High Risk Score (45 or more points). Fall hb prevention measures have been instituted. Side Rails Up X 2 Frequent Obs/Assessments Occuring Family Present and informed to notify staff if the need to leave the bedside As available patient and family educated on Fall Prevention Program and Strategies. Assessment: 13:30 General: Appears. Pain: Unable to use pain scale. FLACC scale score is 0 out of 10. hb Neuro: Level of Consciousness is obtunded. Cardiovascular: Capillary refill < 3 seconds Patient's skin is warm and dry. Cardiovascular: Heart tones S1 S2 present Rhythm is atrial fibrillation with rapid ventricular response. Respiratory: Airway is patent Respiratory effort is labored, with retractions, Respiratory pattern is tachypnea Breath sounds are diminished bilaterally. Breath sounds with rhonchi Breath sounds with wheezes. GI: No signs and/or symptoms were reported involving the gastrointestinal system. : No signs and/or symptoms were reported regarding the genitourinary system. EENT: No signs and/or symptoms were reported regarding the EENT system. Derm: Skin is intact, is thin, Skin is pink, warm \T\ dry. Musculoskeletal: No signs and/or symptoms reported regarding the musculoskeletal system. 13:40 Reassessment: RT at bedside for BIPAP. hb 14:15 Reassessment: No changes from previously documented assessment. Patient and/or family hb updated on plan of care and expected duration. Pain level reassessed. BIPAP continues, son remains at bedside. 15:00 Reassessment: Patient appears in no apparent distress at this time. Patient and/or hb family updated on plan of care and expected duration. Pain level reassessed. Admission ordered, awaiting room assignment. BiPAP continues, son remains as bedside. 16:00 Reassessment: Patient appears in no apparent distress at this time. No changes from hb previously documented assessment. Patient and/or family updated on plan of care and expected duration. Pain level reassessed. 17:05 Reassessment: Mukesh Amado, pt son requests to be notified of any changes to pt status sg and a bed assignment, contact info is [phone]. 18:20 Reassessment: Patient appears in no apparent distress at this time. No changes from previously documented assessment. Patient and/or family updated on plan of care and expected duration. Pain level reassessed. BIPAP continues, awaiting room assignment at this time. Vital Signs: 13:22 BP 147 / 85; Pulse 107; Resp 32; Temp 98.2; Pulse Ox 85% on 100% Non-rebreather mask; hb Weight 82.55 kg; 14:00 BP 126 / 85; Pulse 118; Resp 31; Pulse Ox 94% on 40% BiPAP; hb 15:00 BP 108 / 57; Pulse 107; Resp 30; Pulse Ox 92% on 75% BiPAP; hb 16:00 BP 114 / 79; Pulse 93; Resp 26; Pulse Ox 90% on 75% BiPAP; hb 17:00 BP 131 / 55; Pulse 95; Resp 21; Pulse Ox 89% on 75% BiPAP; hb 18:15 BP 120 / 57; Pulse 97; Resp 23; Pulse Ox 88% on 75% BiPAP; hb 15:00 BIPAP 15/9, R12, FiO2 75% hb ED Course: 13:22 Patient arrived in ED. hb 13:28 Triage completed. hb 13:28 Arm band placed on. hb 13:30 Missed attempt(s): 22 gauge in right hand. Bleeding controlled, band aid applied, sg catheter tip intact. 13:33 Ej Blabuena MD is Attending Physician. [facility] 13:34 EKG done, by rehab nursing tech. reviewed by Ej Balbuena MD. at1 13:45 Patient has correct armband on for positive identification. Placed in gown. Bed in low hb position. Call light in reach. Side rails up X2. 13:59 X-ray completed. Portable x-ray completed in exam room. Patient tolerated procedure mh1 well. 14:00 Chest Single View XRAY In Process Unspecified. EDMS 14:36 Daniela Pompa, LEONA is Primary Nurse. hb 14:46 Notified ED physician of a critical lab result(s). WBC-26.8. sv 15:27 Lab(s) recollected, by me, sent to lab. Inserted saline lock: 20 gauge in left em1 antecubital area, using aseptic technique. Blood collected. 15:28 Inserted saline lock: 20 gauge in left hand, using aseptic technique. em1 16:10 BIPAP Sent. hb 16:16 Esteban Alexandra DO is Hospitalizing Provider. [facility] 16:35 Benjamin cath inserted, using sterile technique, 16 Fr., by oh, balloon inflated, to hb gravity drainage, urine specimen collected. 19:04 No provider procedures requiring assistance completed. Patient admitted, IV remains in hb place. Administered Medications: 13:50 Drug: NS 0.9% (30 ml/kg) 30 ml/kg Route: IV; Rate: bolus; Site: right antecubital; hb 20:13 Follow up: IV Status: Completed infusion; IV Intake: 2000ml lp1 16:50 Drug: Cefepime 2 grams Route: IVPB; Rate: 200 ml/hr; Infused Over: 30 mins; Site: left hb antecubital; 16:50 Drug: vancoMYCIN 1 grams Route: IVPB; Infused Over: 2 hrs; Site: left antecubital; hb Intake: 20:13 IV: 2000ml; Total: 2000ml. lp1 Outcome: 16:18 Decision to Hospitalize by Provider. saundra 18:32 Admitted to ER Hold. Please see [facility] for further documentation. hb 18:32 Condition: stable 18:32 Instructed on the need for admit. 21:00 Patient left the ED. lp1 Signatures: Dispatcher [employer] Keri Montes RN RN sv Gay, Steven, RN RN sg Anderson, Corey, MD MD cha Harvey, Martha [facility] Rey Nelson em1 Joseline Beebe, RN RN lp1 Nancy Carey, arabic translator EKG Tat1 Daniela Pompa, LEONA RN hb Corrections: (The following items were deleted from the chart) 13:28 13:22 BP 147 / 85; Pulse 107bpm; Resp 29bpm; Pulse Ox 85% 02 100% Non-rebreather mask; hb Temp 98.2F; hb 13:34 13:22 BP 147 / 85; Pulse 107bpm; Resp 32bpm; Pulse Ox 85% 02 100% Non-rebreather mask; hb Temp 98.2F; hb 18:25 15:00 BP 108 / 57; Pulse 107bpm; Resp 30bpm; Pulse Ox 92% 02 75% BiPAP; hb hb 21:29 21:28 Patient left the ED. lp1 lp1
--- NOTE | 2019-02-11 17:13 | P.HP ---
Certification for Inpatient Patient admitted to: Inpatient With expected LOS: >2 Midnights Patient will require the following post-hospital care: Hospice Practitioner: I am a practitioner with admitting privileges, knowledge of patient current condition, hospital course, and medical plan of care. Services: Services provided to patient in accordance with Admission requirements found in Title 42 Section 412.3 of the Code of Federal Regulations Patient History Date of Service: 02/11/19 Primary Care Provider: [facility] physician Reason for admission: Altered mental status History of Present Illness: 78-year-old female presented to the emergency room after she was sent from the assisted due to altered mental status. Most of the information came from the ER physician and son who was at bedside. Son reports that over the past several weeks the patient has been getting weaker. She has had poor oral intake. She has gone from walking to mainly in a wheelchair. He usually sees her 1 to 2 times a week. He reports that the patient was treated for UTI recently. He further reports the patient has Alzheimer's dementia and has been declining in health over the past several weeks to months. Patient with history of COPD, GERD, hypertension, hypothyroidism, prior tobacco use. Patient sent over due to low oxygen saturations of 78%. In the ER patient appeared dehydrated. O2 sats were low. Patient required BiPAP in the emergency room. On lab white count shows 26.8, hemoglobin 15.9. Pro calcitonin and lactic acid were elevated. Troponin also elevated at 0.59. Sodium 154. Potassium 3.5. BUN of 64, creatinine 1.2 with a GFR 41. Glucose 107. Chest x-ray showed right base pneumonia. Patient was stabilized in the emergency room. Patient admitted for further treatment. When I saw the patient ER, she appeared altered in her mental state. She was on BiPAP. Her response to pain was sluggish. Son was at bedside. Allergies morphine Allergy (Verified 09/04/17 01:36) Rash Home medications list reviewed: Yes Home Medications: Anastrozole [Arimidex*] 1 mg PO DAILY 11/21/13 Aspirin Enteric Coated [ASPIRIN 81 MG EC*] 81 mg PO DAILY 11/21/13 Donepezil HCl [Aricept] 20 mg PO DAILY 11/21/13 Alendronate Sodium [Fosamax] 70 mg PO Q7D 09/04/17 Amlodipine [Norvasc] 5 mg PO DAILY 09/04/17 Calcium Carbonate/Vitamin D3 [Calcium 600-Vit D3 200 Tablet] 1 tab PO BID Diphenhydramine [Benadryl*] 25 mg PO Q6HP PRN 09/04/17 Enalapril Maleate [Vasotec] 5 mg PO DAILY 09/04/17 Lactobacillus Acidophilus/Pect [Acidophilus-Pectin Capsule] 1 cap PO DAILY 09/04 Levothyroxine Sodium 25 mcg PO DAILY 09/04/17 Levothyroxine Sodium 200 mcg PO DAILY 09/04/17 Loratadine [Claritin*] 10 mg PO DAILYPRN PRN 09/04/17 Mag Hydrox/Al Hydrox/Simeth [Maalox Maximum Strength Susp] 10 ml PO Q12HP PRN Memantine HCl [Namenda Xr] 28 mg PO DAILY 09/04/17 Multivitamin [Multiple Vitamins] 1 tab PO DAILY 09/04/17 Omeprazole 20 mg PO DAILY 09/04/17 Polyethylene Glycol 3350 [Miralax] 17 gm PO Q8HP PRN 09/04/17 Psyllium Husk (with Sugar) [Metamucil Packet] 3.4 gm PO BID 09/04/17 Tiotropium Shannon [Spiriva] 18 mcg IH DAILY 09/04/17 Tizanidine [Zanaflex*] 4 mg PO BEDTIME 09/04/17 levoFLOXacin [Levaquin] 500 mg PO DAILY #7 tab 09/06/17 - Past Medical/Surgical History Diabetic: No -: History of breast cancer -: Alzheimer's dementia, moderate to severe -: COPD -: GERD -: Hypertension -: Hypothyroidism -: Tobacco abuse -: x3 -: Mastectomy -: Hysterectomy Psychosocial/ Personal History: Patient has been at the assisted for over 6 months. - Family History Family History: Reviewed- Non-Contributory - Social History Smoking Status: Former smoker Alcohol use: No CD- Drugs: No Caffeine use: Yes Place of Residence: Care Home Review of Systems is unable to be obtained Physical Examination - Physical Exam General: Other (Patient currently on BiPAP. Minimal response to pain.) HEENT: Atraumatic, Other (Dry mucous membranes) Neck: Supple Respiratory: Crackles/rales (Bilateral), Expiratory wheezes (By lab), Inspiratory wheezes (Bilateral) Cardiovascular: Abnormal pulses (Sinus tachycardia) Gastrointestinal: Normal bowel sounds, Soft and benign, Non-distended Musculoskeletal: No erythema Integumentary: Tenderness/swelling (Minimal edema to the lower extremities bilateral) Neurological: Other (Patient on BiPAP. Minimal response to pain) - Studies Laboratory Data (last 24 hrs) 02/11/19 13:45: PT 15.6 H, INR 1.34, APTT 29.6 02/11/19 13:45: WBC 26.8 H*, Hgb 15.9 H, Hct 49.5 H, Plt Count 344 02/11/19 13:45: Sodium 154 H, Potassium 3.5, BUN 64 H, Creatinine 1.27, Glucose 107 H, Total Bilirubin 0.8, AST 67 H, ALT 28, Alkaline Phosphatase 90, Lipase 52 L Assessment and Plan - Plan Impression: Toxic encephalopathy with sepsis secondary to right lower lobe pneumonia complicated with acute on chronic respiratory failure, COPD exacerbation and NSTEMI Hypertension Hypothyroidism Alzheimer's dementia, moderate to severe Acute renal injury with hypernatremia along with dehydration,poor recent oral intake and malnutrition Former tobacco use Plan: Toxic encephalopathy with sepsis secondary to right lower lobe pneumonia complicated with acute on chronic respiratory failure, COPD exacerbation and NSTEMI: Patient will be admitted for further treatment. Patient did receive 30 milligrams/kilogram of normal saline in the ER. Will continue with maintenance fluid. Will monitor closely. Antibiotics initiated with vancomycin and cefepime. Will continue antibiotics at this time. Will obtain blood, urine and sputum culture results. Will monitor chest x-ray. Will obtain echocardiogram. Case discussed at length with son. Advanced directives address in detail. Son does not want any heroic measures. Patient is DNR. No intubation is mentioned at this time. Son understands that her condition has declined over the past several weeks to months. If her condition continues to decline further, patient may require hospice. Son understands this and is in agreement with plan of care. Will continue monitor closely with antibiotics and fluids. Sepsis protocol in place. Will continue to reassess. Will provide IV steroids and breathing treatments. Will continue CPAP to maintain sats above 90%. Will continue to reassess and monitor lab/chest x-ray closely. Will consult pulmonology to further evaluate. Likely no need for cardiac evaluation and intervention due to her current state. Patient to be followed closely by hospitalist team. Hypertension: Will provide medication as needed. Hypothyroidism: Willing to obtain assisted medication and restart. Alzheimer's dementia, moderate to severe: Will need to obtain and restart assisted medication. Acute renal injury with hypernatremia along with dehydration,poor recent oral intake and malnutrition: Will provide Doppler off. Will consider oral nutrition. Former tobacco use: Will monitor closely. Discharge Plan: Care Home Plan to discharge in: Greater than 2 days - Advance Directives Does patient have a Living Will: No Does patient have a Durable POA for Healthcare: No - Code Status/Comfort Care Code Status Assessed: Yes (Patient DNR.) Time Spent Managing Pts Care (In Minutes): 55
[2019-02-11 18:06] LABS: Platelet Estimate ADEQ
[2019-02-11 18:07] LABS: Blood Morphology Comment NOT SEEN (NOT SEEN)
[2019-02-11 18:11] LABS: Urine Bacteria >50 /HPF (<20); Urine Culture Reflex Order REFLEXED; Urine Mucus 4+ /HPF (NONE SEEN)
[2019-02-11 20:17] LABS: Urine Blood 2+ (NEG); Urine Glucose NEGATIVE (NEG); Urine Protein 1+ (NEG); Urine Specific Gravity 1.025 (1.005-1.030); Urine pH 5.5 (5.0-7.0)
--- NOTE | 2019-02-11 22:44 | P.INFCA ---
Sepsis Focused Assessment - Sepsis Screen Result Severe Sepsis: Positive Septic Shock: Negative - Evaluation Current stage of sepsis: Severe sepsis - Vital Signs Reviewed: Yes Heart rate: 94 Blood Pressure: 116/57 Respiratory Rate: 23 O2 Sat by Pulse Oximetry: 92 - Examination Heart: Regular rate/rhythm Lungs: Crackles Peripheral pulses: 2+ Slightly diminished Peripheral pulse location: Radial, Femoral Capillary refill: <2 Seconds Skin examination: Normal turgor, Not mottled
[2019-02-11] MEDS ORDERED: FAMOTIDINE 20 MG/2 ML VIAL IV SCH (22:55)
[2019-02-11] MEDS ORDERED: ACETAMINOPHEN 500 MG TAB PO PRN (22:55)
[2019-02-11] MEDS ORDERED: ACETAMINOPHEN 650MG/RECT SUPP RECT PRN (22:55)
[2019-02-11] MEDS ORDERED: ONDANSETRON 4 MG/2 ML VIAL IV PRN (22:55)
[2019-02-11] MEDS ORDERED: VANCOMYCIN 1 GM in NA CHLORIDE 0.9% 500 ML IVPB ONE (23:00)
[2019-02-11] MEDS: D5 0.45 NS 1,000 ML IV SCH (23:18)
[2019-02-11 23:20] LABS: Blood Gas Oxyhemoglobin 89.2 % (94-97); Blood O2 Saturation 90.6 % (92-98.5)
[2019-02-11] MEDS: IPRATROPIUM BROM 0.5MG/2.5ML NEB PRN (23:30)
[2019-02-11] MEDS: ALBUTEROL 2.5 MG/3 ML NEB SOL NEB PRN (23:30)
[2019-02-11] MEDS: ARFORMOTEROL TARTRATE 15 MCG/2 ML VIAL.NEB NEB SCH (23:30)
[2019-02-11] MEDS ORDERED: ALBUTEROL 2.5 MG/3 ML NEB SOL ONE (23:39)
[2019-02-11] MEDS ORDERED: IPRATROPIUM BROM 0.5MG/2.5ML ONE (23:40)
[2019-02-12 00:02] LABS: CKMB Creatine Kinase MB 3.7 ng/mL (0.3-3.6); Thyroid Stimulating Hormone 0.268 uIU/mL (0.360-3.740); Troponin I 0.48 ng/mL (0.0-0.045)
[2019-02-12] MEDS: METHYLPREDNISOLONE 40 MG INJ IV SCH ×2 (00:02→01:00)
[2019-02-12 03:11] LABS: Protime INR 1.39
[2019-02-12 03:12] LABS: Absolute Lymphocytes (CBC) 0.7 K/uL (0.7-4.9); Absolute Monocytes 1.6 K/uL (0.1-1.3); Absolute Neutrophil 19.4 K/uL (1.8-8.0); Basophils % 0.1 % (0-1.3); Hematocrit 40.7 % (36.0-45.0); Lymphocytes % 3.2 % (15.3-44.8); MPV 7.6 fL (7.6-11.3); Monocytes % 7.2 % (3.3-12.3); RBC Red Blood Cell Count 4.18 M/uL (3.86-4.86)
[2019-02-12 03:28] LABS: Albumin 1.4 g/dL (3.4-5.0); Bilirubin Total 0.5 mg/dL (0.2-1.0); Magnesium 3.2 mg/dL (1.8-2.4); Potassium 3.1 mmol/L (3.5-5.1); Protein, Total 6.2 g/dL (6.4-8.2)
[2019-02-12] MEDS: KCL 20 MEQ/100 mL IVPB 20 MEQ/100 ML BAG IV SCH ×2 (06:40→09:58)
[2019-02-12 07:35] LABS: Troponin I 0.27 ng/mL (0.0-0.045)
[2019-02-12] MEDS: ARFORMOTEROL TARTRATE 15 MCG/2 ML VIAL.NEB NEB SCH ×2 (07:54→20:00)
[2019-02-12] MEDS ORDERED: METHYLPREDNISOLONE 40 MG INJ IV SCH (08:00)
--- NOTE | 2019-02-12 08:14 | P.CNS ---
Date of Consult: 02/12/19 Primary Care Provider: [facility] physician Chief Complaint: Altered mental status History of Present Illness: Patient is 78 years of age nonverbal sent from the [facility] due to altered mental status currently on BiPAP poor oral intake ambulating with a wheelchair. For urinary tract infection recently as a history of dementia progressive declined multiple medical problems patient was hypoxic diagnosed with pneumonia Allergies morphine Allergy (Verified 09/04/17 01:36) Rash Home Medications: Anastrozole [Arimidex*] 1 mg PO DAILY 11/21/13 Aspirin Enteric Coated [ASPIRIN 81 MG EC*] 81 mg PO DAILY 11/21/13 Donepezil HCl [Aricept] 20 mg PO DAILY 11/21/13 Alendronate Sodium [Fosamax] 70 mg PO Q7D 09/04/17 Amlodipine [Norvasc] 5 mg PO DAILY 09/04/17 Calcium Carbonate/Vitamin D3 [Calcium 600-Vit D3 200 Tablet] 1 tab PO BID Diphenhydramine [Benadryl*] 25 mg PO Q6HP PRN 09/04/17 Enalapril Maleate [Vasotec] 5 mg PO DAILY 09/04/17 Lactobacillus Acidophilus/Pect [Acidophilus-Pectin Capsule] 1 cap PO DAILY 09/04 Levothyroxine Sodium 25 mcg PO DAILY 09/04/17 Levothyroxine Sodium 100 mcg PO DAILY 09/04/17 Loratadine [Claritin*] 10 mg PO DAILYPRN PRN 09/04/17 Mag Hydrox/Al Hydrox/Simeth [Maalox Maximum Strength Susp] 10 ml PO Q12HP PRN Memantine HCl [Namenda Xr] 28 mg PO DAILY 09/04/17 Multivitamin [Multiple Vitamins] 1 tab PO DAILY 09/04/17 Omeprazole 20 mg PO DAILY 09/04/17 Polyethylene Glycol 3350 [Miralax] 17 gm PO Q8HP PRN 09/04/17 Psyllium Husk (with Sugar) [Metamucil Packet] 3.4 gm PO BID 09/04/17 Tiotropium Ladson [Spiriva] 18 mcg IH DAILY 09/04/17 Tizanidine [Zanaflex*] 4 mg PO BEDTIME 09/04/17 - Past Medical/Surgical History Diabetic: No -: History of breast cancer -: Alzheimer's dementia, moderate to severe -: COPD -: GERD -: Hypertension -: Hypothyroidism -: Tobacco abuse -: x3 -: Mastectomy -: Hysterectomy Psychosocial/ Personal History: Patient has been at the [facility] for over 6 months. - Social History Smoking Status: Unknown if ever smoked Alcohol use: No CD- Drugs: No Caffeine use: Yes Place of Residence: Assisted Review of Systems is unable to be obtained Physical Examination Temp Pulse Resp BP Pulse Ox 97.9 F 92 H 19 146/66 H 95 02/12/19 04:00 02/12/19 04:00 02/12/19 04:00 02/12/19 04:00 02/12/19 04:00 General: Other (Minimally responsive opens eyes to commands) Neck: Supple Respiratory: Expiratory wheezes Cardiovascular: No edema, Normal S1 S2 Gastrointestinal: Normal bowel sounds, Soft and benign Laboratory Data (last 24 hrs) 02/11/19 13:45: PT 15.6 H, INR 1.34, APTT 29.6 02/11/19 13:45: WBC 26.8 H*, Hgb 15.9 H, Hct 49.5 H, Plt Count 344 02/11/19 13:45: Sodium 154 H, Potassium 3.5, BUN 64 H, Creatinine 1.27, Glucose 107 H, Total Bilirubin 0.8, AST 67 H, ALT 28, Alkaline Phosphatase 90, Lipase 52 L - Problems (1) Pneumonia Current Visit: Yes Status: Acute Plan: Patient is 78 years of age [facility] resin multiple medical problems admitted with right lower lobe pneumonia respiratory failure patient is hypoxic hypercapnic hypernatremic pro calcitonin level was elevated patient is currently on cefepime and vancomycin on BiPAP titrate sat to 90% repeat arterial blood gases continue with bronchodilators Dc steroids monitor hypernatremia thyroid function tests is normal prognosis poor Qualifiers: Pneumonia type: due to unspecified organism
[2019-02-12] MEDS: LEVOTHYROXINE SOD 0.1 MG TAB PO SCH (08:15)
--- NOTE | 2019-02-12 08:47 | RAD REPORT ---
EXAM DESCRIPTION: Michelle Single View02/12/2019 8:25 am CLINICAL HISTORY: Shortness of breath COMPARISON: February 11, 2019 FINDINGS: Right basilar consolidation unchanged Mild left basilar opacities The heart is mildly enlarged IMPRESSION: No change in the right basilar pneumonia
[2019-02-12] MEDS: D5 0.45 NS 1,000 ML IV SCH (08:55)
[2019-02-12] MEDS: ANASTROZOLE 1 MG TAB PO SCH (09:00)
[2019-02-12] MEDS: ASPIRIN EC 81 MG TAB PO SCH (09:00)
[2019-02-12] MEDS ORDERED: HOME MED 1 EA UNK (Memantine Hcl [Namenda Xr] 28 MG) PO SCH (09:00)
[2019-02-12] MEDS: MULTIVITAMIN TAB PO SCH (09:00)
[2019-02-12] MEDS: LACTOBACILLUS/ACIDOPHILUS TAB PO SCH (09:00)
--- NOTE | 2019-02-12 09:01 | P.PN ---
Subjective Date of Service: 02/12/19 Primary Care Provider: [facility] physician Chief Complaint: Altered mental status Subjective: Other (Mentation slightly improved. Patient response to pain. Patient currently on BiPAP.) Physical Examination - Vital Signs Temperature: 97.9 F Blood Pressure: 146/66 Pulse: 92 Respirations: 19 Pulse Ox (%): 95 - Physical Exam General: Other (Patient appears to be more alert than yesterday. Response to pain is improved. Patient currently on BiPAP.) HEENT: Atraumatic Neck: Supple Respiratory: Crackles/rales (Bilateral) Cardiovascular: Normal pulses, Regular rate/rhythm Gastrointestinal: Normal bowel sounds, Soft and benign, Non-distended Integumentary: No erythema, No warmth, No cyanosis Neurological: Other (Better response than yesterday in her mentation. Patient with moderate to severe dementia.) - Studies Laboratory Data (last 24 hrs) 02/11/19 13:45: PT 15.6 H, INR 1.34, APTT 29.6 02/11/19 13:45: WBC 26.8 H*, Hgb 15.9 H, Hct 49.5 H, Plt Count 344 02/11/19 13:45: Sodium 154 H, Potassium 3.5, BUN 64 H, Creatinine 1.27, Glucose 107 H, Total Bilirubin 0.8, AST 67 H, ALT 28, Alkaline Phosphatase 90, Lipase 52 L Medications List Reviewed: Yes Assessment & Plan Discharge Plan: Correction Plan to discharge in: Greater than 2 days Physician Review Additional Text: Impression: Toxic encephalopathy with sepsis secondary to right lower lobe pneumonia complicated with acute on chronic respiratory failure, COPD exacerbation and NSTEMI Hypertension Hypothyroidism Alzheimer's dementia, moderate to severe Acute renal injury with hypernatremia along with dehydration,poor recent oral intake and malnutrition Former tobacco use Plan: Toxic encephalopathy with sepsis secondary to right lower lobe pneumonia complicated with acute on chronic respiratory failure, COPD exacerbation and NSTEMI: Will continue with current antibiotics and plan of care. IV fluids adjusted due to her hypernatremia. Will recheck chest x-ray. Case discussed with pulmonology. Patient still with poor prognosis. If her condition continues to decline will recommend hospice. Pulmonology recommends hospice at this time as the patient is malnourished and with hypernatremia. Her condition with hypernatremia and malnutrition will likely continue in reoccur AE even if pneumonia is treated. Her moderate to severe dementia is likely a significant contributing factor. Will discuss with son about plan of care. Hypertension: Will provide medication as needed. Overall stable. Hypothyroidism: Will restart home medication. Alzheimer's dementia, moderate to severe: Will restart home medication Acute renal injury with hypernatremia along with dehydration,poor recent oral intake and malnutrition: Will provide dobhoff so that nutrition can be initiated. Dietary consulted to help in this. Former tobacco use: Will monitor closely. Time Spent Managing Pts Care (In Minutes): 55
[2019-02-12] MEDS: THIAMINE 200 MG/2 ML INJ IVP SCH (09:58)
[2019-02-12] MEDS: ENOXAPARIN 40 MG/0.4 ML SQ SCH (09:59)
[2019-02-12] MEDS: D5W 1,000 ML IV SCH (10:01)
[2019-02-12 10:30] LABS: Arterial Blood Carboxyhemoglob 1.1 % (0-1.5); Blood Gas Oxyhemoglobin 87.7 % (94-97); Blood O2 Saturation 89.3 % (92-98.5)
--- NOTE | 2019-02-12 11:05 | ECHO ---
HEIGHT: 5 ft 6 in WEIGHT: 181 lb 15.866 oz DATE OF STUDY: 02/12/[address]: Esteban Alexandra DO 2-DIMENSIONAL: YES M.MODE: YES DOPPLER: YES COLOR FLOW: YES TDS: NO PORTABLE: NO DEFINITY: NO BUBBLE STUDY: NO DIAGNOSIS: NSTEMI, SEPSIS CARDIAC HISTORY: CATHERIZATION: NO SURGERY: NO PROSTHETIC VALVE: NO PACEMAKER: NO MEASUREMENTS (cm) DIASTOLIC (NORMALS) SYSTOLIC (NORMALS) IVSd 1.1 (0.6-1.2) LA Diam (1.9-4.0) LVEF 66% LVIDd 3.8 (3.5-5.7) LVIDs 2.5 (2.0-3.5) %FS 36% LVPWd 1.2 (0.6-1.2) Ao Diam 2.6 (2.0-3.7) 2 DIMENSIONAL ASSESSMENT: RIGHT ATRIUM: NORMAL LEFT ATRIUM: NORMAL RIGHT VENTRICLE: NORMAL LEFT VENTRICLE: NORMAL TRICUSPID VALVE: NORMAL MITRAL VALVE: NORMAL PULMONIC VALVE: NORMAL AORTIC VALVE: MILD SCLEROSIS PERICARDIAL EFFUSION: NONE AORTIC ROOT: NORMAL LEFT VENTRICULAR WALL MOTION: NORMAL DOPPLER/COLOR FLOW: MILD AORTIC REGURGITATION. MILD TRICUSPID REGURGITATION. NORMAL RIGHT VENTRICULAR SYSTOLIC PRESSURE. COMMENTS: NORMAL LEFT VENTRICULAR EJECTION FRACTION. MILD SCLEROSIS WITH NO AORTIC STENOSIS. MILD AORTIC REGURGITATION. MILD TRICUSPID REGURGITATION. TECHNOLOGIST: Shawanda MCFADDEN
[2019-02-12 15:25] LABS: Potassium 3.8 mmol/L (3.5-5.1)
[2019-02-12] MEDS ORDERED: CEFEPIME 1 GM/VIAL IV SCH (16:00)
[2019-02-12] MEDS ORDERED: KCL 20 MEQ/100 mL IVPB 20 MEQ/100 ML BAG IV SCH (16:00)
[2019-02-12] MEDS: CEFEPIME/SWI 1gm 10 ML IV SCH (16:47)
[2019-02-12 17:35] VITALS: BMI 29.2
[2019-02-12] MEDS ORDERED: DONEPEZIL HCL 5 MG TAB PO SCH (21:00)
[2019-02-13] MEDS: D5W 1,000 ML IV SCH ×4 (00:25→23:37)
[2019-02-13 03:41] LABS: Absolute Lymphocytes (CBC) 1.2 K/uL (0.7-4.9); Absolute Monocytes 1.2 K/uL (0.1-1.3); Absolute Neutrophil 19.3 K/uL (1.8-8.0); Basophils % 0.3 % (0-1.3); Eosinophils % 0.1 % (0-4.4); Hematocrit 37.5 % (36.0-45.0); Lymphocytes % 5.5 % (15.3-44.8); MPV 7.7 fL (7.6-11.3); Monocytes % 5.6 % (3.3-12.3); RBC Red Blood Cell Count 3.87 M/uL (3.86-4.86)
[2019-02-13 03:57] LABS: Albumin 1.4 g/dL (3.4-5.0); Bilirubin Total 0.4 mg/dL (0.2-1.0); Magnesium 3.2 mg/dL (1.8-2.4); Protein, Total 6.1 g/dL (6.4-8.2)
[2019-02-13 04:00] LABS: Protime INR 1.44
[2019-02-13] MEDS ORDERED: VANCOMYCIN 1.5 GM in NA CHLORIDE 0.9% 500 ML IVPB SCH ×2 (04:00→08:00)
[2019-02-13 04:14] LABS: Blood Morphology Comment NOT SEEN (NOT SEEN); Platelet Estimate ADEQ
[2019-02-13] MEDS: LEVOTHYROXINE SOD 0.1 MG TAB PO SCH (06:15)
[2019-02-13] MEDS: ARFORMOTEROL TARTRATE 15 MCG/2 ML VIAL.NEB NEB SCH ×2 (08:22→20:00)
[2019-02-13] MEDS: ANASTROZOLE 1 MG TAB PO SCH (09:00)
[2019-02-13] MEDS: LACTOBACILLUS/ACIDOPHILUS TAB PO SCH (09:00)
[2019-02-13] MEDS: MULTIVITAMIN TAB PO SCH (09:00)
[2019-02-13] MEDS: ASPIRIN EC 81 MG TAB PO SCH (09:00)
[2019-02-13] MEDS: ENOXAPARIN 40 MG/0.4 ML SQ SCH (09:14)
[2019-02-13] MEDS: THIAMINE 200 MG/2 ML INJ IVP SCH (09:15)
--- NOTE | 2019-02-13 12:18 | P.PN ---
Subjective Date of Service: 02/21/19 Primary Care Provider: FANY physician Chief Complaint: Respiratory failure pneumonia No change patient unresponsive still on BiPAP requiring high concentrations of oxygen urine culture positive for E coli patient is still hypernatremic white count elevated Review of Systems is unable to be obtained Physical Examination - Vital Signs Temperature: 97.9 F Blood Pressure: 139/65 Pulse: 89 Respirations: 20 Pulse Ox (%): 92 - Physical Exam General: Unresponsive Respiratory: Crackles/rales (Crackles on the right side) Cardiovascular: No edema, Regular rate/rhythm - Studies Microbiology Data (last 24 hrs): 02/11/19 16:46 Clean Catch Urine [place] Count - Final >100,000 CFU/ML. 02/11/19 16:46 Clean Catch Urine - Final Escherichia Coli Medications List Reviewed: Yes Assessment & Plan - Problems (Diagnosis) (1) Pneumonia Current Visit: Yes Status: Acute Plan: Patient is 78 years of age admitted with pneumonia respiratory failure and hypernatremia currently unresponsive increase IV fluids to 100 consider hospice care overall prognosis is very poor Qualifiers: Pneumonia type: due to unspecified organism Laterality: unspecified laterality Lung location: unspecified part of lung Qualified Code(s): J18.9 - Pneumonia, unspecified organism
[2019-02-13] MEDS ORDERED: JEVITY 1.5 CAL LIQUID 1,000 ML BOT RTH SCH (13:00)
--- NOTE | 2019-02-13 13:39 | RAD REPORT ---
EXAM DESCRIPTION: RAD - Chest Single View - 02/13/2019 1:33 pm CLINICAL HISTORY: dobhoff placement confirmation Chest pain. COMPARISON: Chest Single View dated 02/12/2019; Chest Single View dated 02/11/2019; Chest Single View da gonzalo 10/12/2018; Chest Single View dated 11/20/2017 FINDINGS: Portable technique limits examination quality. Tip of the enteric tube is in the body of the stomach.
[2019-02-13] MEDS ORDERED: NEPRO 1,000 ML BOT FT SCH (14:00)
[2019-02-13 15:37] LABS: Urine Appearance CLEAR; Urine Bilirubin NEGATIVE (NEG); Urine Blood 2+ (NEG); Urine Color YELLOW; Urine Glucose NEGATIVE (NEG); Urine Protein TRACE (NEG); Urine Specific Gravity 1.025 (1.005-1.030); Urine pH 5.5 (5.0-7.0)
[2019-02-13 15:39] LABS: Urine Microscopic Reflex ORDER UMIC
[2019-02-13 16:19] LABS: Urine Bacteria 20-50 /HPF (<20); Urine Culture Reflex Order REFLEXED
[2019-02-13] MEDS: CEFEPIME/SWI 1gm 10 ML IV SCH (17:18)
--- NOTE | 2019-02-13 17:59 | P.PN ---
Subjective Date of Service: 02/13/19 Primary Care Provider: FANY physician Chief Complaint: Respiratory failure pneumonia Subjective: Demented Physical Examination - Vital Signs Temperature: 97.9 F Blood Pressure: 139/65 Pulse: 89 Respirations: 20 Pulse Ox (%): 92 - Physical Exam General: Alert HEENT: Atraumatic Neck: Supple Respiratory: Expiratory wheezes, Inspiratory wheezes, Other (Patient remains on BiPAP) Cardiovascular: Normal pulses, Regular rate/rhythm Gastrointestinal: Normal bowel sounds, Soft and benign, Non-distended, No masses , No rebound, No guarding Musculoskeletal: No erythema, No tenderness, No warmth Integumentary: No erythema, No warmth, No cyanosis Neurological: Normal speech, Normal strength at 5/5 x4 extr, Normal tone, Normal affect - Studies Microbiology Data (last 24 hrs): 02/11/19 16:46 Clean Catch Urine [place] Count - Final >100,000 CFU/ML. 02/11/19 16:46 Clean Catch Urine - Final Escherichia Coli Medications List Reviewed: Yes Assessment & Plan Discharge Plan: Home Plan to discharge in: 24 Hours Physician Review Additional Text: Impression: Toxic encephalopathy with sepsis secondary to right lower lobe pneumonia complicated with acute on chronic respiratory failure, COPD exacerbation and NSTEMI Hypertension Hypothyroidism Alzheimer's dementia, moderate to severe Acute renal injury with hypernatremia along with dehydration,poor recent oral intake and malnutrition Former tobacco use Plan: Toxic encephalopathy with sepsis secondary to right lower lobe pneumonia complicated with acute on chronic respiratory failure, COPD exacerbation and NSTEMI: Will continue with current antibiotics and plan of care. IV fluids adjusted due to her hypernatremia. Will consult Nephrology to address the Hypernatremia. Case discussed with emma Garcia Will continue with current treatment. Case also discussed with son. If no significant improvement over the next several days he will consider hospice. Will try nutrition through dobhoff at this time. Hypertension: Will provide medication as needed. Overall stable. Hypothyroidism: Will try to restart home medication. Alzheimer's dementia, moderate to severe: Will restart home medication Acute renal injury with hypernatremia along with dehydration,poor recent oral intake and malnutrition: Will consult Nephrology to further evaluate. Former tobacco use: Will monitor closely. Time Spent Managing Pts Care (In Minutes): 55
--- NOTE | 2019-02-13 19:06 | CON ---
Date of Consultation: 02/13/2019 Additional Consulting Physician: Dr. Alexandra. Reason For Consultation: Fluid management, hypernatremia. History Of Present Illness: All the information has been obtained from the record as the patient has Alzheimer's, altered mental status on BiPAP. This is a 78-year-old female with significant past medical history of Alzheimer's, hypertension, GERD , COPD, hypothyroidism. The patient was brought from the [facility] because of altered mental stat us, poor intake for the last 2 weeks, recurrent UTI. Primary workup showed hypoxemia and elevated BU N and creatinine with severe hypernatremia. For that reason, we have been consulted. The patient wa s started on D5. The patient's respiratory status deteriorated, placed on BiPAP. The patient is sti ll maintaining good urine output. Has leukocytosis with elevation in procalcitonin and lactic. The patient was treated for UTI. On home medication, there is no any insulting medications except alendronate and LEIGH inhibitor. Otherwise, there is no diuresis. Repeated chest x-ray showing over volume with congestion. Past Medical History: Include: 1.Hypertension. 2.Alzheimer's. 3.COPD. 4.Hyperlipidemia. 5.Hypothyroidism. Past Surgical History: Include mastectomy and hysterectomy. Home Medications: Include: 1.Aspirin. 2.Arimidex. 3.Donepezil. 4.Amlodipine 5. 5.Calcium carbonate. 6.Enalapril 5. 7.Levothyroxine. 8.Namenda. 9.Omeprazole. 10.Breathing treatment. 11.Levaquin. Family History: Positive for hypertension. Social History: Lives in snf. Ex-smoker. Denied alcohol. Denies drug abuse. Review of Systems: Not obtainable. Physical Examination: General: When I saw the patient, the patient on BiPAP, obtunded. Vital Signs: Blood pressure 139/65, pulse of 89. Chest: Crackles bilateral. Decreased entry on the right base. Heart: S1, S2. Systolic murmur. Abdomen: Soft, nontender. Extremity: Trace edema. Laboratory Data: WBC 21.8, H and H 12/37.5, platelets 202. Sodium 157, potassium 4, bicarb 34, BUN 49, creatinine 0.7, calcium 7.9, magnesium 3.2. TSH 0.26. ABG; pH 7.32, CO2 62, O2 of 61, saturatio n 89. Urinalysis; specific gravity of 1.025, rbc of 10, wbc of 50 or more. Current Medications: The patient on its include cefepime, vancomycin, Arimidex, breathing treatment, Lovenox, Jevity, Zofran, D5 at 100. Blood sugar being controlled. Assessment And Plan: 1.Acute kidney injury secondary to prerenal, recovered, resolved. 2.Hypernatremia, secondary to poor intake. Given the finding on the chest x-ray, I am going to go a head and start on free water. We will start the patient on Lasix to establish more sodium diuresis. We will send for uric acid, urine electrolyte, and we will monitor the patient closely. 3.Hypertension. Controlled optimal. Continue current medication. 4.Hypothyroidism. Continue supplement. 5.Chronic obstructive pulmonary disease exacerbation. We will add prednisone. We will follow up wi th the primary. Thank you, Dr. Alexandra for allowing us to participate in the care of your patient. PAOLA Voice ID: [id number] Report ID: [id number]
[2019-02-14] MEDS ORDERED: VANCOMYCIN 1.5 GM in NA CHLORIDE 0.9% 500 ML IVPB SCH (04:00)
[2019-02-14 04:34] LABS: Absolute Lymphocytes (CBC) 1.5 K/uL (0.7-4.9); Absolute Neutrophil 14.6 K/uL (1.8-8.0); Basophils % 1.1 % (0-1.3); Eosinophils % 0.2 % (0-4.4); Hematocrit 39.5 % (36.0-45.0); Lymphocytes % 8.5 % (15.3-44.8); MPV 7.8 fL (7.6-11.3); Monocytes % 6.1 % (3.3-12.3); RBC Red Blood Cell Count 4.16 M/uL (3.86-4.86)
[2019-02-14 05:01] LABS: Protime INR 1.52
[2019-02-14 05:03] LABS: ALT/SGPT 25 U/L (12-78); AST/SGOT 89 U/L (15-37); Albumin 1.3 g/dL (3.4-5.0); Alkaline Phosphatase 65 U/L (45-117); BUN Blood Urea Nitrogen 37 mg/dL (7-18); Bicarbonate 33 mmol/L (21-32); Bilirubin Total 0.5 mg/dL (0.2-1.0); Glucose Level 108 mg/dL (74-106); Magnesium 2.4 mg/dL (1.8-2.4); Phosphorus 2.6 mg/dL (2.5-4.9); Potassium 3.5 mmol/L (3.5-5.1); Protein, Total 5.6 g/dL (6.4-8.2); Sodium Level 151 mmol/L (136-145); Uric Acid 6.9 mg/dL (2.6-6.0)
[2019-02-14] MEDS: LEVOTHYROXINE SOD 0.1 MG TAB PO SCH (05:10)
[2019-02-14] MEDS: ARFORMOTEROL TARTRATE 15 MCG/2 ML VIAL.NEB NEB SCH ×2 (08:01→19:40)
[2019-02-14] MEDS: THIAMINE 200 MG/2 ML INJ IVP SCH (08:34)
[2019-02-14] MEDS: ENOXAPARIN 40 MG/0.4 ML SQ SCH (08:34)
[2019-02-14] MEDS: LACTOBACILLUS/ACIDOPHILUS TAB PO SCH (08:35)
[2019-02-14] MEDS: ASPIRIN EC 81 MG TAB PO SCH (08:35)
[2019-02-14] MEDS: FUROSEMIDE 40 MG/4 ML VIAL IV SCH (08:35)
[2019-02-14] MEDS: MULTIVITAMIN TAB PO SCH (08:35)
[2019-02-14] MEDS: ANASTROZOLE 1 MG TAB PO SCH (08:43)
[2019-02-14] MEDS: D5W 1,000 ML IV SCH ×2 (09:00→17:07)
[2019-02-14] MEDS ORDERED: KCL 20 MEQ/100 mL IVPB 20 MEQ/100 ML BAG IV SCH (09:00)
--- NOTE | 2019-02-14 09:24 | P.PN ---
Subjective Date of Service: 02/14/19 Primary Care Provider: FANY physician Chief Complaint: Respiratory failure pneumonia Subjective: Demented, Other (slightly improved, more alert) Physical Examination - Vital Signs Temperature: 97.4 F Blood Pressure: 153/68 Pulse: 89 Respirations: 20 Pulse Ox (%): 91 - Physical Exam General: Demented, Other (on BIPAP) Neck: Supple Respiratory: Crackles/rales Cardiovascular: Normal pulses, Regular rate/rhythm Gastrointestinal: Normal bowel sounds, Soft and benign, Non-distended, No masses , No rebound, No guarding Musculoskeletal: No erythema, No tenderness, No warmth Integumentary: No tenderness/swelling, No erythema, No warmth, No cyanosis Neurological: Normal speech, Normal strength at 5/5 x4 extr, Normal tone, Normal affect - Studies Microbiology Data (last 24 hrs): 02/11/19 16:46 Clean Catch Urine [place] Count - Final >100,000 CFU/ML. 02/11/19 16:46 Clean Catch Urine - Final Escherichia Coli Medications List Reviewed: Yes Assessment & Plan Discharge Plan: Detention Plan to discharge in: 48 Hours Physician Review Additional Text: Impression: Toxic encephalopathy with sepsis secondary to right lower lobe pneumonia and UTI (urine culture positive for E. coli) complicated with acute on chronic respiratory failure, COPD exacerbation and NSTEMI Hypertension Hypothyroidism Alzheimer's dementia, moderate to severe Acute renal injury with hypernatremia along with dehydration,poor recent oral intake and malnutrition Former tobacco use Plan: Toxic encephalopathy with sepsis secondary to right lower lobe pneumonia and UTI (urine culture positive for E. coli) complicated with acute on chronic respiratory failure, COPD exacerbation and NSTEMI: Patient is more alert. Patient with underlying dementia. Lab and culture results reviewed. Patient also with UTI. Will discontinue vancomycin and continue cefepime. Case discussed at length with son yesterday. Will continue with oral feeds. Will continued to address her hypernatremia which has improved. Will have respiratory wean off BiPAP. Continue to address with son. Patient likely will require hospice at discharge regardless of her condition. Son was in agreement. Will need to determine whether patient will require inpatient hospice verses care home hospice. Nephrology consulted to address hypernatremia. Case discussed at length with pulmonology this morning. Will check to see if the patient can eat on her own. Hypertension: Will provide medication as needed. Overall stable. Hypothyroidism: Continue with [facility] medication. Alzheimer's dementia, moderate to severe: Continue with her medication Acute renal injury with hypernatremia along with dehydration,poor recent oral intake and malnutrition: This has improved. Continue with IV fluids. Nephrology consulted. Patient receiving feeds through dobhoff. If no significant change will pursue hospice. If this shows improvement Former tobacco use: Will monitor closely. Time Spent Managing Pts Care (In Minutes): 55
[2019-02-14] MEDS: CEFEPIME/SWI 1gm 10 ML IV SCH ×2 (11:28→21:17)
[2019-02-14] MEDS: IPRATROPIUM BROM 0.5MG/2.5ML NEB PRN (19:40)
[2019-02-14] MEDS: ALBUTEROL 2.5 MG/3 ML NEB SOL NEB PRN (19:40)
--- NOTE | 2019-02-14 21:55 | P.PN ---
Subjective Date of Service: 02/14/19 Primary Care Provider: FANY physician Chief Complaint: Respiratory failure pneumonia Subjective: No new changes sodium improving to 151 WBC trending down still lethargic will cont D5w Cont Abx prognosis guarded Physical Examination - Vital Signs Temperature: 97.6 F Blood Pressure: 150/70 Pulse: 88 Respirations: 21 Pulse Ox (%): 92 - Physical Exam General: Comatose HEENT: Atraumatic Neck: Supple, 2+ carotid pulse no bruit, Without JVD or thyroid abnormality Respiratory: Clear to auscultation bilaterally, Normal air movement Cardiovascular: No edema, Regular rate/rhythm, Normal S1 S2 - Studies Medications List Reviewed: Yes Assessment And Plan - Current Problems (Diagnosis) (1) Hypernatremia Current Visit: Yes Status: Acute - Plan PEPPER resolved due to prerenal azotemia hypernatremia due to dehydration improving cont D5w encephalopathy Na is improving consider head CT if no improvement Sepsis due to UTIO and PNA WBC trending down HTN controlled
[2019-02-15 04:23] LABS: Albumin 1.3 g/dL (3.4-5.0); BUN Blood Urea Nitrogen 22 mg/dL (7-18); Bicarbonate 33 mmol/L (21-32); Glucose Level 119 mg/dL (74-106); Phosphorus 2.6 mg/dL (2.5-4.9); Potassium 3.4 mmol/L (3.5-5.1); Sodium Level 146 mmol/L (136-145)
[2019-02-15] MEDS: LEVOTHYROXINE SOD 0.1 MG TAB PO SCH (05:19)
[2019-02-15] MEDS: D5W 1,000 ML IV SCH ×3 (05:19→22:02)
[2019-02-15] MEDS: KCL 20 MEQ/100 mL IVPB 20 MEQ/100 ML BAG IV SCH ×2 (06:32→09:23)
[2019-02-15] MEDS: ARFORMOTEROL TARTRATE 15 MCG/2 ML VIAL.NEB NEB SCH ×2 (07:43→20:00)
[2019-02-15 08:57] LABS: Absolute Lymphocytes (CBC) 1.9 K/uL (0.7-4.9); Absolute Monocytes 1.2 K/uL (0.1-1.3); Absolute Neutrophil 16.6 K/uL (1.8-8.0); Basophils % 0.3 % (0-1.3); Eosinophils % 0.7 % (0-4.4); Hematocrit 38.2 % (36.0-45.0); Lymphocytes % 9.5 % (15.3-44.8); MPV 7.4 fL (7.6-11.3); Monocytes % 5.9 % (3.3-12.3); RBC Red Blood Cell Count 4.04 M/uL (3.86-4.86)
[2019-02-15] MEDS: ANASTROZOLE 1 MG TAB PO SCH (09:24)
[2019-02-15] MEDS: LACTOBACILLUS/ACIDOPHILUS TAB PO SCH (09:24)
[2019-02-15] MEDS: FUROSEMIDE 40 MG/4 ML VIAL IV SCH (09:24)
[2019-02-15] MEDS: MULTIVITAMIN TAB PO SCH (09:24)
[2019-02-15] MEDS: ASPIRIN EC 81 MG TAB PO SCH (09:24)
[2019-02-15] MEDS: ENOXAPARIN 40 MG/0.4 ML SQ SCH (09:25)
[2019-02-15] MEDS: CEFEPIME/SWI 1gm 10 ML IV SCH (09:29)
[2019-02-15] MEDS: THIAMINE 200 MG/2 ML INJ IVP SCH (09:29)
--- NOTE | 2019-02-15 10:18 | RAD REPORT ---
EXAM DESCRIPTION: RAD - Chest Single View - 02/15/2019 9:59 am CLINICAL HISTORY: Pneumonia COMPARISON: February 13, February 12 TECHNIQUE: AP portable chest image was obtained 0954 hours . FINDINGS: There has been partial clearing of the right base consolidation and decrease in the right- sided pleural fluid. Patchy infiltrate or atelectasis left base not substantially different. No progr essive finding. Feeding tube remains in place. Heart and vasculature are normal. No measurable pleura l effusion and no pneumothorax. No acute bony abnormality seen. No acute aortic findings suspected. IMPRESSION: Partial clearing of right lung base pneumonia. Significant infiltrate remains.
--- NOTE | 2019-02-15 11:43 | P.PN ---
Subjective Date of Service: 02/15/19 Primary Care Provider: FANY physician Chief Complaint: Respiratory failure pneumonia Subjective: No new changes sodium improving to 146 WBC trending down still lethargic will cont D5w Cont Abx K replaced need goal of care verification Physical Examination - Vital Signs Temperature: 99.0 F Blood Pressure: 146/65 Pulse: 110 Respirations: 32 Pulse Ox (%): 92 - Physical Exam General: Other (Lethargic ) HEENT: Atraumatic Neck: Supple, Without JVD or thyroid abnormality Respiratory: Clear to auscultation bilaterally, Normal air movement Cardiovascular: No edema, Regular rate/rhythm, Normal S1 S2, No gallops, No rubs , No murmurs Gastrointestinal: Normal bowel sounds, Soft and benign Integumentary: No rashes - Studies Medications List Reviewed: Yes Assessment And Plan - Current Problems (Diagnosis) (1) Hypernatremia Current Visit: Yes Status: Acute - Plan PEPPER resolved due to prerenal azotemia hypernatremia due to dehydration improving cont D5w encephalopathy Na is improving consider head CT if no improvement Sepsis due to UTI and PNA WBC trending down HTN controlled Hypokalemia due to poor oral intake and diuresis tube feeding replace prn poor prognosis need goal of care verification
--- NOTE | 2019-02-15 11:59 | P.PN ---
Subjective Date of Service: 02/15/19 Primary Care Provider: FANY physician Chief Complaint: Respiratory failure pneumonia Subjective: Demented, Other (no significant changes. Still on BiPAP and IV fluids/nutrition) Physical Examination - Vital Signs Temperature: 99.0 F Blood Pressure: 146/65 Pulse: 110 Respirations: 32 Pulse Ox (%): 92 - Physical Exam General: Demented, Other (Still on BiPAP. Patient response to voice. Overall unchanged) Neck: Supple Respiratory: Crackles/rales (Bilateral) Cardiovascular: Abnormal pulses (Sinus tachycardia) Gastrointestinal: Normal bowel sounds, Non-distended, No masses, No rebound, No guarding Integumentary: No erythema, No warmth, No cyanosis Neurological: Dementia - Studies Medications List Reviewed: Yes Assessment & Plan Discharge Plan: Halfway (With hospice) Plan to discharge in: Greater than 2 days Physician Review Additional Text: Impression: Toxic encephalopathy with sepsis secondary to right lower lobe pneumonia and UTI (urine culture positive for E. coli) complicated with acute on chronic respiratory failure, COPD exacerbation and NSTEMI Hypertension Hypothyroidism Alzheimer's dementia, moderate to severe Acute renal injury with hypernatremia along with dehydration,poor recent oral intake and malnutrition Former tobacco use Plan: Toxic encephalopathy with sepsis secondary to right lower lobe pneumonia and UTI (urine culture positive for E. coli) complicated with acute on chronic respiratory failure, COPD exacerbation and NSTEMI: No significant change since yesterday. Patient still on BiPAP and IV fluids/nutrition. Cultures reviewed. Will discontinue cefepime and switched over to meropenem. Case discussed with nephrology and pulmonology. Patient with poor prognosis. Patient likely requires hospice. Case discussed at length with son. Another son is to come in from out of town. They want to reassess in the next 48 hr to determine whether to continue with current therapy or hospice. Son understands that her condition has not improved. Case discussed in detail with son. May need to consider CT scan if no improvement in her mental state. Patient on DVT prophylaxis. Medications reviewed. Hypertension: Will provide medication as needed. Overall stable. Hypothyroidism: Continue with [facility] medication. Alzheimer's dementia, moderate to severe: Continue with her medication Acute renal injury with hypernatremia along with dehydration,poor recent oral intake and moderate malnutrition: Sodium has improved. Continue IV fluids. Case discussed with nephrology. Continue with nutrition needs. Hopefully she will be able to transition to oral feeds. Former tobacco use: Will monitor closely. Time Spent Managing Pts Care (In Minutes): 55
[2019-02-15] MEDS ORDERED: JEVITY 1.5 CAL LIQUID 1,000 ML BOT FT SCH (15:00)
[2019-02-15] MEDS ORDERED: KCL 20 MEQ/100 mL IVPB 20 MEQ/100 ML BAG IV SCH (21:00)
[2019-02-15] MEDS ORDERED: Meropenem 1000 MG/VIAL IV SCH (21:00)
[2019-02-15] MEDS: Meropenem 1,000 MG in NA CHLORIDE 0.9% 100 ML IV SCH (22:02)
[2019-02-16] MEDS: D5W 1,000 ML IV SCH ×2 (01:00→15:15)
[2019-02-16 04:42] LABS: Absolute Lymphocytes (CBC) 1.4 K/uL (0.7-4.9); Absolute Monocytes 1.1 K/uL (0.1-1.3); Absolute Neutrophil 16.1 K/uL (1.8-8.0); Basophils % 0.4 % (0-1.3); Eosinophils % 1.1 % (0-4.4); Hematocrit 38.5 % (36.0-45.0); Lymphocytes % 7.5 % (15.3-44.8); MPV 7.6 fL (7.6-11.3); Monocytes % 5.9 % (3.3-12.3); RBC Red Blood Cell Count 4.09 M/uL (3.86-4.86)
[2019-02-16 05:04] LABS: Albumin 1.4 g/dL (3.4-5.0); BUN Blood Urea Nitrogen 14 mg/dL (7-18); Bicarbonate 36 mmol/L (21-32); Glucose Level 128 mg/dL (74-106); Magnesium 1.9 mg/dL (1.8-2.4); Phosphorus 2.9 mg/dL (2.5-4.9); Potassium 4.2 mmol/L (3.5-5.1); Sodium Level 145 mmol/L (136-145)
[2019-02-16] MEDS: LEVOTHYROXINE SOD 0.1 MG TAB PO SCH (06:12)
[2019-02-16] MEDS: ARFORMOTEROL TARTRATE 15 MCG/2 ML VIAL.NEB NEB SCH ×2 (08:42→18:36)
[2019-02-16] MEDS: ENOXAPARIN 40 MG/0.4 ML SQ SCH (09:34)
[2019-02-16] MEDS: LACTOBACILLUS/ACIDOPHILUS TAB PO SCH (09:34)
[2019-02-16] MEDS: THIAMINE 200 MG/2 ML INJ IVP SCH (09:34)
[2019-02-16] MEDS: ASPIRIN EC 81 MG TAB PO SCH (09:34)
[2019-02-16] MEDS: Meropenem 1,000 MG in NA CHLORIDE 0.9% 100 ML IV SCH ×2 (09:34→21:00)
[2019-02-16] MEDS: MULTIVITAMIN TAB PO SCH (09:34)
[2019-02-16] MEDS: FUROSEMIDE 40 MG/4 ML VIAL IV SCH (09:34)
--- NOTE | 2019-02-16 09:42 | P.PN ---
Subjective Date of Service: 02/16/19 Primary Care Provider: FANY physician Chief Complaint: Respiratory failure pneumonia Subjective: Demented, Other (Patient appears more alert. Still on BiPAP.) Physical Examination - Vital Signs Temperature: 99.1 F Blood Pressure: 144/86 Pulse: 87 Respirations: 16 Pulse Ox (%): 97 - Physical Exam General: Alert, Demented HEENT: Atraumatic Neck: Supple Respiratory: Clear to auscultation bilaterally, Normal air movement, Other ( Remains on BiPAP) Cardiovascular: Normal pulses, Regular rate/rhythm Gastrointestinal: Normal bowel sounds, Soft and benign, Non-distended, No masses , No rebound, No guarding Integumentary: No warmth, No cyanosis Neurological: Dementia - Studies Medications List Reviewed: Yes Assessment & Plan Discharge Plan: Shelter Plan to discharge in: 48 Hours Physician Review Additional Text: Impression: Toxic encephalopathy with sepsis secondary to right lower lobe pneumonia and UTI (urine culture positive for E. coli) complicated with acute on chronic respiratory failure, COPD exacerbation and NSTEMI Hypertension Hypothyroidism Alzheimer's dementia, moderate to severe Acute renal injury with hypernatremia along with dehydration,poor recent oral intake and malnutrition Former tobacco use Plan: Toxic encephalopathy with sepsis secondary to right lower lobe pneumonia and UTI (urine culture positive for E. coli) complicated with acute on chronic respiratory failure, COPD exacerbation and NSTEMI: Patient is slightly more alert. Patient was switched over to IV meropenem yesterday. White count slightly improved. Will continue to have respiratory wean off BiPAP. Patient continues on IV fluids and nutrition. IV fluids adjusted. Case discussed at length with son. The other son from out of state is to come today. Will readdress her prognosis. If no significant acid changer the next 24-48 hr will pursue hospice. Otherwise will try to wean off BiPAP at this time and continue current care. Continue with DVT prophylaxis. Medications reviewed. Patient will likely require hospice at discharge. Hypertension: Will provide medication as needed. Overall stable. Hypothyroidism: Continue with halfway medication. Alzheimer's dementia, moderate to severe: Continue with her medication Acute renal injury with hypernatremia along with dehydration,poor recent oral intake and moderate malnutrition: Sodium has improved. IV fluids adjusted. Nutrition also adjusted as recommended by dietary. Will discuss with nephrology. Former tobacco use: Will monitor closely. Time Spent Managing Pts Care (In Minutes): 55
[2019-02-16] MEDS ORDERED: D5 0.45 NS 1,000 ML IV SCH (10:00)
[2019-02-16] MEDS: ANASTROZOLE 1 MG TAB PO SCH (11:09)
--- NOTE | 2019-02-16 17:38 | PN ---
Date of Progress Note: 02/16/2019 Subjective: The patient more awake today, off BiPAP. Physical Examination: Vital Signs: Blood pressure 128/104, pulse of 98. Chest: Crackles on the right base. Heart: S1, S2. Systolic murmur. Abdomen: Soft, nontender. Extremity: Trace edema. Laboratory Data: WBC 18.8, H and H 12.9/38.5, platelet 127. Sodium 145, potassium 4.2, bicarb 36, B UN 14, creatinine 0.5, calcium 7.7, phosphorus 2.9, magnesium 1.9. Current Medications: 1.The patient on its include: 2.Arimidex. 3.Meropenem. 4.Lovenox. 5.Tylenol. 6.Lasix 40 mg. 7.Breathing treatment. 8.Levothyroxine. 9.D5 half at 75 per hour. 10.Lasix 40 mg daily. Assessment And Plan: 1.Hypernatremia secondary to poor intake, recovered, resolved. I am going to continue free water. We will decrease IV fluid to D5 at 50 per hour. Plan to continue to taper and discontinue. I am rivera g to decrease the Lasix to 20 mg daily. 2.Congestive heart failure over volume, recovered, resolved. 3.Acute kidney injury secondary to prerenal, recovered, resolved. 4.Hypercapnic respiratory failure secondary to pneumonia, weaned from BiPAP. We will follow up with primary. We will repeat ABG. SHWETA/LAURA Voice ID: [id number] Report ID: [id number]
[2019-02-16 18:26] LABS: Arterial Blood Carboxyhemoglob 1.2 % (0-1.5); Blood Gas Oxyhemoglobin 97.1 % (94-97); Blood O2 Saturation 98.9 % (92-98.5)
[2019-02-17 05:59] LABS: Absolute Lymphocytes (CBC) 1.3 K/uL (0.7-4.9); Absolute Monocytes 1.4 K/uL (0.1-1.3); Absolute Neutrophil 13.8 K/uL (1.8-8.0); Basophils % 0.4 % (0-1.3); Eosinophils % 2.3 % (0-4.4); Hematocrit 35.7 % (36.0-45.0); Lymphocytes % 7.9 % (15.3-44.8); MPV 8.5 fL (7.6-11.3); RBC Red Blood Cell Count 3.79 M/uL (3.86-4.86)
[2019-02-17 06:07] LABS: Albumin 1.5 g/dL (3.4-5.0); BUN Blood Urea Nitrogen 12 mg/dL (7-18); Bicarbonate 36 mmol/L (21-32); Glucose Level 95 mg/dL (74-106); Magnesium 2.1 mg/dL (1.8-2.4); Sodium Level 141 mmol/L (136-145)
[2019-02-17] MEDS: LEVOTHYROXINE SOD 0.1 MG TAB PO SCH (06:22)
[2019-02-17] MEDS: ARFORMOTEROL TARTRATE 15 MCG/2 ML VIAL.NEB NEB SCH ×2 (08:01→20:27)
--- NOTE | 2019-02-17 08:22 | P.PN ---
Subjective Date of Service: 02/17/19 Primary Care Provider: FANY physician Chief Complaint: Respiratory failure pneumonia Subjective: Demented, Other (Patient continues to improve. Patient more alert and able to talk today.) Physical Examination - Vital Signs Temperature: 98.6 F Blood Pressure: 154/78 Pulse: 88 Respirations: 26 Pulse Ox (%): 97 - Physical Exam General: Alert, In no apparent distress, Demented, Other (Patient able to talk today) HEENT: Atraumatic Neck: Supple Respiratory: Clear to auscultation bilaterally, Normal air movement, Other (On nasal cannula) Cardiovascular: Normal pulses, Regular rate/rhythm Gastrointestinal: Normal bowel sounds, Soft and benign, Non-distended, No tenderness, No masses, No rebound, No guarding Musculoskeletal: No erythema, No tenderness, No warmth Integumentary: No tenderness/swelling, No erythema, No warmth, No cyanosis Neurological: Normal speech, Normal strength at 5/5 x4 extr, Normal tone, Dementia - Studies Microbiology Data (last 24 hrs): 02/11/19 14:00 Blood - Blood Aerobic Blood Culture - Final No growth in 5 days. 02/11/19 14:00 Blood - Blood Anaerobic Blood Culture - Final No growth in 5 days. 02/11/19 13:45 Blood - Blood Aerobic Blood Culture - Final No growth in 5 days. 02/11/19 13:45 Blood - Blood Anaerobic Blood Culture - Final No growth in 5 days. Medications List Reviewed: Yes Assessment & Plan Discharge Plan: Custodial Plan to discharge in: 48 Hours Physician Review Additional Text: Impression: Toxic encephalopathy with sepsis secondary to right lower lobe pneumonia and UTI (urine culture positive for E. coli) complicated with acute on chronic respiratory failure, COPD exacerbation and NSTEMI Hypertension Hypothyroidism Alzheimer's dementia, moderate to severe Acute renal injury with hypernatremia along with dehydration,poor recent oral intake and malnutrition Former tobacco use Plan: Toxic encephalopathy with sepsis secondary to right lower lobe pneumonia and UTI (urine culture positive for E. coli) complicated with acute on chronic respiratory failure, COPD exacerbation and NSTEMI: Patient continues to improve. Patient was switched over to IV meropenem 2 days ago. Will continue with IV meropenem. Urine culture positive for E coli. Will need to determine if this will turn into ESBL. White count improved. Patient is more alert and talkative. Encourage oral intake. Will have physical therapy assess ambulation. Son reports patient is mainly wheelchair-bound at the half-way. Continue to wean off oxygen. IV fluids adjusted by Nephrology. Patient appears to be on the recovering end of her hospital stay. Recheck chest x-ray tomorrow. Continue monitor lab. I anticipate, patient returning back to the half-way within the next 48 hr. I will discuss with sons about long-term care. Patient still would benefit with hospice at the half-way at discharge as this will likely reoccur in the future. Pneumonia and UTI prevention will need to be enforced. I will turn the service over to the hospital steam tomorrow. I will go over the plan of care with them. Hypertension: Will review blood pressure medication and half-way medication and adjust accordingly. Will provide IV medication as needed. Overall stable. Hypothyroidism: Continue with shelter medication. Alzheimer's dementia, moderate to severe: Continue with her medication Acute renal injury with hypernatremia along with dehydration,poor recent oral intake and moderate malnutrition: This has improved. IV fluids adjusted by Nephrology. Former tobacco use: Will monitor closely. Time Spent Managing Pts Care (In Minutes): 55
[2019-02-17 08:36] LABS: Blood Morphology Comment NOT SEEN (NOT SEEN); Platelet Estimate DECR; Urine White Blood Cell Casts OK
[2019-02-17] MEDS: ASPIRIN EC 81 MG TAB PO SCH (09:04)
[2019-02-17] MEDS: LACTOBACILLUS/ACIDOPHILUS TAB PO SCH (09:04)
[2019-02-17] MEDS: ENOXAPARIN 40 MG/0.4 ML SQ SCH (09:04)
[2019-02-17] MEDS: THIAMINE 200 MG/2 ML INJ IVP SCH (09:04)
[2019-02-17] MEDS: FUROSEMIDE 20 MG/ 2ML VIAL IV SCH (09:04)
[2019-02-17] MEDS: MULTIVITAMIN TAB PO SCH (09:04)
[2019-02-17] MEDS: Meropenem 1,000 MG in NA CHLORIDE 0.9% 100 ML IV SCH ×2 (09:05→21:46)
[2019-02-17] MEDS: ANASTROZOLE 1 MG TAB PO SCH (09:05)
[2019-02-17] MEDS: D5W 1,000 ML IV SCH ×2 (10:00→14:36)
--- NOTE | 2019-02-17 15:28 | RAD REPORT ---
EXAM DESCRIPTION: CT - Thorax Wo Con CLINICAL HISTORY: Chest pain Follow up pneumonia, rule out cancer COMPARISON: Thorax Wo Con dated 02/22/2018; Chest Single View dated 02/15/2019 FINDINGS: Moderate airspace opacity is present in the right lower lobe with a small right pleural ef fusion. Mild airspace opacity is present left lower lobe with small left pleural effusion. No pulmona ry mass or hilar obstructing lesion is present. A few calcified granulomata are present bilaterally. Areas of tree-in-bud opacity are present in anterior right lung base and the upper lobes bilaterally likely representing endobronchial spread of infection. No pneumothorax. Mildly prominent lymph nodes are present in the mediastinum, likely reactive. No concerning bony finding. No gross upper abdominal finding. All CT scans are performed using dose optimization technique as appropriate and may include automated exposure control or mA/KV adjustment according to patient size. IMPRESSION: Bibasilar pneumonia with small pleural effusions noted.Findings are more severe on the r ight lobe. There are areas of tree-in-bud opacity present bilaterally, indicating endobronchial sprea d of infection.
--- NOTE | 2019-02-17 15:35 | PN ---
Date of Progress Note: 02/17/2019 Subjective: The patient is more awake today. Partly the patient pulled her NG over the night. The patient is feeling well. No nausea. No vomiting. Physical Examination: Vital Signs: When I saw the patient, blood pressure of 154/78, pulse of 88. Chest: Crackles on the right base. Heart: S1, S2. Regular. Abdomen: Soft, nontender. Extremities: No edema. NEURO: No focal. Laboratory Data: WBC trending down 16.9, H and H 11.7/35.7, platelet 148. Sodium 141, potassium 4, bicarb 36, BUN 12, creatinine 0.4, calcium 8.1, phosphorus of 3, magnesium of 2.1, albumin 1.5, corre cted calcium is 10.1. Current Medications: The patient on its include, 1.Breathing treatment. 2.Lovenox. 3.Tylenol. 4.Lasix 40 daily. 5.Zofran. 6.D5. 7.Multivitamin. Assessment And Plan: 1.Acute kidney injury secondary to prerenal, recovered, resolved. 2.Hypernatremia secondary to poor intake, recovered, resolved. 3.Congestive heart failure with respiratory failure, has been recovered. We will decrease IV fluid to 50 per hour and we will monitor if sodium continue to trend down and patient optimally eating, we will discontinue IV fluid. 4.Pneumonia with questionable of consolidation on the right lower base. We will discuss with the pr imary regarding CT chest. 5.Marginal hypercalcemia. I will discontinue multivitamin. We will follow up. PAOLA Voice ID: [id number] Report ID: [id number]
[2019-02-17] MEDS: IPRATROPIUM BROM 0.5MG/2.5ML NEB PRN (20:28)
[2019-02-17] MEDS: ALBUTEROL 2.5 MG/3 ML NEB SOL NEB PRN (20:28)
[2019-02-18] MEDS: ALBUTEROL 2.5 MG/3 ML NEB SOL NEB PRN (02:50)
[2019-02-18] MEDS: IPRATROPIUM BROM 0.5MG/2.5ML NEB PRN (02:50)
[2019-02-18 05:00] LABS: Absolute Lymphocytes (CBC) 1.6 K/uL (0.7-4.9); Basophils % 0.8 % (0-1.3); Eosinophils % 1.7 % (0-4.4); Lymphocytes % 12.4 % (15.3-44.8); MPV 8.3 fL (7.6-11.3); Monocytes % 7.9 % (3.3-12.3); RBC Red Blood Cell Count 3.71 M/uL (3.86-4.86)
[2019-02-18 05:17] LABS: Albumin 1.6 g/dL (3.4-5.0); BUN Blood Urea Nitrogen 12 mg/dL (7-18); Bicarbonate 32 mmol/L (21-32); Glucose Level 83 mg/dL (74-106); Magnesium 2.2 mg/dL (1.8-2.4); Phosphorus 3.1 mg/dL (2.5-4.9); Potassium 3.9 mmol/L (3.5-5.1); Sodium Level 141 mmol/L (136-145)
[2019-02-18] MEDS: LEVOTHYROXINE SOD 0.1 MG TAB PO SCH (05:35)
[2019-02-18] MEDS: ARFORMOTEROL TARTRATE 15 MCG/2 ML VIAL.NEB NEB SCH ×2 (07:46→20:00)
--- NOTE | 2019-02-18 07:59 | RAD REPORT ---
EXAM DESCRIPTION: RAD - Chest Single View - 02/18/2019 7:17 am CLINICAL HISTORY: Pneumonia COMPARISON: February 17 CT chest TECHNIQUE: AP portable chest image was obtained 0713 hours . FINDINGS: Lungs are underinflated. Bilateral lung base pneumonia remains. Minimal pleural effusions are present. Pneumonia findings are not substantially different from the CT study. Heart size remains upper normal. Vasculature is stable. Feeding tube has been removed since the prior study. No measura ble pleural effusion and no pneumothorax. No acute bony abnormality seen. No acute aortic findings soriano spected. IMPRESSION: Bilateral lung base pneumonia and pleural effusions not substantially different from jamin or day CT study.
[2019-02-18] MEDS ORDERED: POTASSIUM 25 MEQ EFFERV TAB PO ONE (09:00)
[2019-02-18] MEDS: THIAMINE 200 MG/2 ML INJ IVP SCH (09:44)
[2019-02-18] MEDS: ENOXAPARIN 40 MG/0.4 ML SQ SCH (09:45)
[2019-02-18] MEDS: ASPIRIN EC 81 MG TAB PO SCH (09:51)
[2019-02-18] MEDS: FUROSEMIDE 20 MG/ 2ML VIAL IV SCH (09:51)
[2019-02-18] MEDS: ANASTROZOLE 1 MG TAB PO SCH (09:52)
[2019-02-18] MEDS: Meropenem 1,000 MG in NA CHLORIDE 0.9% 100 ML IV SCH ×2 (09:52→23:06)
[2019-02-18] MEDS: LACTOBACILLUS/ACIDOPHILUS TAB PO SCH (09:52)
--- NOTE | 2019-02-18 12:05 | RAD REPORT ---
EXAM DESCRIPTION: RAD - Barium Swallow Modified - 02/18/2019 12:00 pm CLINICAL HISTORY: Dysphagia COMPARISON: Gastric Emptying Study dated 03/05/2016 TECHNIQUE: The patient was given liquid, semi-solid and solid forms of barium. Lateral view fluorosc opic imaging was performed in conjunction with speech pathology service. FINDINGS: Laryngeal penetration: not cleared, deep penetration to the level of the vocal cords; not cleared and likely to be aspirated by way of gravity. Aspiration , no cough pharyngeal residue: Mild vallecular, pyriform pureed bolus passed into the lower esophagus with out difficulty. Total fluoroscopy time: 3 minutes and 45 seconds
[2019-02-18] MEDS: D5W 1,000 ML IV SCH (15:18)
--- NOTE | 2019-02-18 16:01 | P.PN ---
Subjective Date of Service: 02/18/19 Primary Care Provider: [facility] physician Chief Complaint: Respiratory failure pneumonia Subjective: No C/O voiced, Tolerating diet, Improving, Doing well, Demented Review of Systems 10-point ROS is otherwise unremarkable Physical Examination - Vital Signs Temperature: 97.4 F Blood Pressure: 126/71 Pulse: 92 Respirations: 20 Pulse Ox (%): 96 - Physical Exam General: Alert, In no apparent distress, Demented HEENT: Atraumatic, PERRLA, EOMI Neck: Supple, JVD not distended Respiratory: Clear to auscultation bilaterally, Normal air movement Cardiovascular: Regular rate/rhythm, Normal S1 S2 Gastrointestinal: Normal bowel sounds, No tenderness Musculoskeletal: No tenderness Integumentary: No rashes Neurological: Normal speech, Normal tone, Normal affect Lymphatics: No axilla or inguinal lymphadenopathy - Studies Medications List Reviewed: Yes Assessment And Plan - Current Problems (Diagnosis) (1) Altered mental status Onset Date: 09/04/17 Current Visit: No Status: Acute Plan: Most Likely Toxic Encephalopathy 2.2 to PNA vs UTI -IV meropenum / so far -Improving doing well overall Qualifiers: Altered mental status type: unspecified Qualified Code(s): R41.82 - Altered mental status, unspecified (2) UTI (urinary tract infection) Onset Date: 09/04/17 Current Visit: No Status: Acute Plan: UTI with Urine culture + for ECOLI -Sensitive to augmentin. Will continue meropenum till blood culture negative and sputum culture -If negative can be switched to Augmentin and DC to SNF Qualifiers: Urinary tract infection type: acute cystitis Hematuria presence: without hematuria Qualified Code(s): N30.00 - Acute cystitis without hematuria (3) Pneumonia Current Visit: Yes Status: Acute Plan: Xray with PNA -Sputum culture pending at this time -Continue with Meropenum Qualifiers: Pneumonia type: due to unspecified organism Laterality: unspecified laterality Lung location: unspecified part of lung Qualified Code(s): J18.9 - Pneumonia, unspecified organism (4) HTN (hypertension) Current Visit: Yes Status: Chronic Qualifiers: Hypertension type: essential hypertension Qualified Code(s): I10 - Essential (primary) hypertension (5) CHF (congestive heart failure) Current Visit: Yes Status: Chronic Qualifiers: Heart failure type: systolic Heart failure chronicity: chronic Qualified Code(s): I50.22 - Chronic systolic (congestive) heart failure (6) COPD (chronic obstructive pulmonary disease) Current Visit: Yes Status: Acute Qualifiers: COPD type: chronic bronchitis Chronic bronchitis type: simple Qualified Code(s): J41.0 - Simple chronic bronchitis - Plan Pending Clinical Improvement at this time. Will continue IV abx till blood and sputum culture negative Discharge Plan: Home Plan to discharge in: 48 Hours - Code Status/Comfort Care Code Status Assessed: Yes Critical Care: No
[2019-02-18] MEDS: JUVEN PACKET PO SCH (21:00)
[2019-02-18] MEDS: ENSURE ENLIVE 237 ML CAN PO SCH (21:00)
[2019-02-19] MEDS: HYDRALAZINE HCL 20 MG/ML VIAL IV PRN ×2 (01:28→08:17)
[2019-02-19] MEDS: D5W 1,000 ML IV SCH ×2 (02:00→10:57)
--- NOTE | 2019-02-19 04:19 | PN ---
Date of Progress Note: 02/18/2019 Chief Complaint: Acute kidney injury secondary to prerenal azotemia. Renal function has improved to baseline. The patient is tolerating p.o. intake. History Of Present Illness: The patient developed moderately severe hypernatremia secondary to decreased p.o. intake, although it resolved. The patient has stable electrolytes. Congestive heart failure and respiratory failure. IV fluids were adjusted to prevent fluid overload. The patient has been treated with antibiotics. Review of Systems: Denies complaints. Physical Examination: Lungs: Clear to auscultation bilaterally. Heart: S1, S2. Abdomen: Soft, benign. Extremities: No edema. Laboratory Data: Sodium 141, potassium 4.0, albumin 1.5, phosphorus 3.0, magnesium 2.1, BUN 12, creatinine 0.4, bicarbonate 36. Impression And Plan: 1. Acute kidney injury secondary to prerenal azotemia. Renal function has improved. Continue adequate hydration and titrate IV fluids. 2. Hypernatremia, resolved. The patient is tolerating p.o. intake. Monitor electrolytes and renal panel. 3. Pneumonia, continue antibiotics. TORRIE/LAURA Voice ID: [id number] Report ID: [id number] CHUCHO
[2019-02-19 05:13] LABS: BUN Blood Urea Nitrogen 16 mg/dL (7-18); Bicarbonate 31 mmol/L (21-32); Glucose Level 109 mg/dL (74-106); Sodium Level 142 mmol/L (136-145)
[2019-02-19] MEDS: LEVOTHYROXINE SOD 0.1 MG TAB PO SCH (06:24)
[2019-02-19] MEDS: LACTOBACILLUS/ACIDOPHILUS TAB PO SCH (08:12)
[2019-02-19] MEDS: ENOXAPARIN 40 MG/0.4 ML SQ SCH (08:12)
[2019-02-19] MEDS: ASPIRIN EC 81 MG TAB PO SCH (08:13)
[2019-02-19] MEDS: ANASTROZOLE 1 MG TAB PO SCH (08:13)
[2019-02-19] MEDS: THIAMINE 200 MG/2 ML INJ IVP SCH (08:14)
[2019-02-19] MEDS: FUROSEMIDE 20 MG/ 2ML VIAL IV SCH (08:14)
[2019-02-19] MEDS: JUVEN PACKET PO SCH ×2 (08:15→21:00)
[2019-02-19] MEDS: ENSURE ENLIVE 237 ML CAN PO SCH ×2 (08:15→21:00)
[2019-02-19] MEDS: ARFORMOTEROL TARTRATE 15 MCG/2 ML VIAL.NEB NEB SCH ×2 (08:22→20:00)
[2019-02-19] MEDS: Meropenem 1,000 MG in NA CHLORIDE 0.9% 100 ML IV SCH ×2 (08:52→21:45)
[2019-02-19 09:49] LABS: Absolute Monocytes 1.3 K/uL (0.1-1.3); Absolute Neutrophil 12.8 K/uL (1.8-8.0); Basophils % 0.7 % (0-1.3); Eosinophils % 1.7 % (0-4.4); Hematocrit 38.9 % (36.0-45.0); Lymphocytes % 11.9 % (15.3-44.8); MPV 8.2 fL (7.6-11.3); Monocytes % 8.1 % (3.3-12.3); RBC Red Blood Cell Count 4.12 M/uL (3.86-4.86)
--- NOTE | 2019-02-19 11:05 | EKG ---
Test Date: 2019-02-11 Test Time: 13:26:12 Growth Hacker: SAMUEL MEASUREMENT RESULTS: Intervals: Rate: 121 AK: 130 QRSD: 86 QT: 304 QTc: 431 [place]: P: 86 AK: 130 QRS: 73 T: 249 INTERPRETIVE STATEMENTS: Sinus tachycardia with premature atrial complexes ST & T wave abnormality, consider inferior ischemia Abnormal ECG Compared to ECG 10/13/2018 00:14:36 Atrial premature complex(es) now present ST (T wave) deviation now present Sinus rhythm no longer present Myocardial infarct finding no longer present Electronically Signed On 02-12-19 05:35:48 CDT by Anam Rojas
--- NOTE | 2019-02-19 12:51 | RAD REPORT ---
EXAM DESCRIPTION: RAD - Chest Single View - 02/19/2019 12:36 pm CLINICAL HISTORY: Shortness of breath COMPARISON: February 18, 2019 TECHNIQUE: AP portable chest image was obtained 1230 hours . FINDINGS: Right base pleural and parenchymal opacification is present showing some improvement from prior imaging. Left base opacification has improved as well. Patient has chronic interstitial opacifi cation. Heart and vasculature are normal. No pneumothorax. No enlarging pleural effusion. No acute klaus ny abnormality seen. No acute aortic findings suspected. IMPRESSION: Partial clearing of bilateral lung base pleural and parenchymal opacification since o imaging. No progressive process identifiable.
--- NOTE | 2019-02-19 14:26 | P.PN ---
Subjective Date of Service: 02/19/19 Primary Care Provider: [facility] physician Chief Complaint: Respiratory failure pneumonia Pt seen and examined at bedside with RN. Chart Reviewed. Pt is Alert this morning. Answering appropriately to all questions however disoriented to her surroundings. No fever or chills last night or this AM. Improving this AM. Son still making decision regarding DC to NH with hospice vs NH Review of Systems 10-point ROS is otherwise unremarkable Physical Examination - Vital Signs Temperature: 98.6 F Blood Pressure: 128/72 Pulse: 105 Respirations: 20 Pulse Ox (%): 98 - Physical Exam General: Alert, In no apparent distress, Demented HEENT: Atraumatic, PERRLA, EOMI Neck: Supple, JVD not distended Respiratory: Clear to auscultation bilaterally, Normal air movement Cardiovascular: Regular rate/rhythm, Normal S1 S2 Gastrointestinal: Normal bowel sounds, No tenderness Musculoskeletal: No tenderness Integumentary: No rashes Neurological: Normal speech, Normal tone, Normal affect Lymphatics: No axilla or inguinal lymphadenopathy - Studies Medications List Reviewed: Yes Assessment And Plan - Current Problems (Diagnosis) (1) Altered mental status Onset Date: 09/04/17 Current Visit: No Status: Acute Plan: Most Likely Toxic Encephalopathy 2.2 to PNA vs UTI. Improved today. -Pt possibly at her new baseline. -IV meropenum 5/7. Urine Culture + for Ecoli. No ESBL. Can switch to PO abx in 24hrs. -Elevated WBC, Most likely Reactive leukocytosis 2.2 to stress. Blood culture negative. xray with Improvement. Repeat UA better than before. Qualifiers: Altered mental status type: unspecified Qualified Code(s): R41.82 - Altered mental status, unspecified (2) UTI (urinary tract infection) Onset Date: 09/04/17 Current Visit: No Status: Acute Plan: UTI with Urine culture + for ECOLI. NO ESBL. -Sensitive to augmentin. Will switch in next 24hrs. -Blood culture negative thus far. Repeat UA with improvement. Qualifiers: Urinary tract infection type: acute cystitis Hematuria presence: without hematuria Qualified Code(s): N30.00 - Acute cystitis without hematuria (3) Pneumonia Current Visit: Yes Status: Acute Plan: Xray with PNA. Improvement today -Sputum culture unable to be collected as patient is not producing phelgm -On meropenum 5/7. Will switch to augmentin in 24hrs Qualifiers: Pneumonia type: due to unspecified organism Laterality: unspecified laterality Lung location: unspecified part of lung Qualified Code(s): J18.9 - Pneumonia, unspecified organism (4) HTN (hypertension) Current Visit: Yes Status: Chronic Qualifiers: Hypertension type: essential hypertension Qualified Code(s): I10 - Essential (primary) hypertension (5) CHF (congestive heart failure) Current Visit: Yes Status: Chronic Qualifiers: Heart failure type: systolic Heart failure chronicity: chronic Qualified Code(s): I50.22 - Chronic systolic (congestive) heart failure (6) COPD (chronic obstructive pulmonary disease) Current Visit: Yes Status: Chronic Qualifiers: COPD type: chronic bronchitis Chronic bronchitis type: simple Qualified Code(s): J41.0 - Simple chronic bronchitis - Plan Pt is currently medically stable for possible DC to NH kian. Son at bedside educated regarding plan of care. Wants to have her stay in hospital till she is completely cured of UTI and AAOx3. Educated son regarding Treatment plan and mentation change possibly a new baseline. Also educated Son on no further need for IV abx as pt culture + for ecoli and no ESBL. Son not in agreement of the treatment plan and denial regarding patient mentation status. Will monitor next 24hrs for further improvement and switch to PO abx and clear for DC to NH. Discharge Plan: Prison Plan to discharge in: 48 Hours - Code Status/Comfort Care Code Status Assessed: Yes Critical Care: No
--- NOTE | 2019-02-19 16:58 | PN ---
Date of Progress Note: 02/19/2019 Subjective: The patient is doing well. The patient was admitted with acute kidney injury, altered m ental status. The patient recovered significantly, more awake today, oriented to place and person. Physical Examination: Vital Signs: Blood pressure 128/72, pulse of 105. Chest: Crackles on the right base. Heart: S1, S2. Systolic murmur. Abdomen: Soft, nontender. Extremities: Trace edema. Laboratory Data: WBC 16.5, H and H of 12.6/38.9, platelet 346. Sodium 142, potassium 4, bicarb 31, BUN 16, creatinine 0.5, calcium of 9. CT chest was done showing pneumonia. Culture growing E coli i n the urine and blood culture still negative. Current Medications: The patient on its include: 1.Meropenem. 2.Breathing treatment. 3.Hydralazine. 4.Tylenol. 5.Ensure. 6.Lasix 20 daily. 7.D5 at 50 per hour. 8.Levothyroxine. Assessment And Plan: 1.Acute kidney injury secondary to cardiorenal, recovered, resolved. 2.Hypernatremia, secondary to depletion. I am going to go ahead and continue free water, DC Lasix, and we will monitor the patient. 3.Bilateral pneumonia. Continue current antibiotic dose appropriate. 4.Congestive heart failure, resolved. DC Lasix. 5.Altered mental status secondary to metabolic. We will follow up with the primary. PAOLA Voice ID: [id number] Report ID: [id number]
[2019-02-20] MEDS: LEVOTHYROXINE SOD 0.1 MG TAB PO SCH (05:31)
[2019-02-20] MEDS: ASPIRIN EC 81 MG TAB PO SCH (07:59)
[2019-02-20] MEDS: LACTOBACILLUS/ACIDOPHILUS TAB PO SCH (07:59)
[2019-02-20] MEDS: ENOXAPARIN 40 MG/0.4 ML SQ SCH (07:59)
[2019-02-20] MEDS: ANASTROZOLE 1 MG TAB PO SCH (08:00)
[2019-02-20] MEDS: Meropenem 1,000 MG in NA CHLORIDE 0.9% 100 ML IV SCH (08:01)
[2019-02-20] MEDS: THIAMINE 200 MG/2 ML INJ IVP SCH (08:01)
[2019-02-20] MEDS: D5W 1,000 ML IV SCH ×2 (08:01→10:34)
[2019-02-20] MEDS: JUVEN PACKET PO SCH ×2 (08:02→21:17)
[2019-02-20] MEDS: ENSURE ENLIVE 237 ML CAN PO SCH ×2 (08:02→21:17)
[2019-02-20] MEDS: ARFORMOTEROL TARTRATE 15 MCG/2 ML VIAL.NEB NEB SCH ×2 (08:04→20:00)
[2019-02-20 09:49] LABS: Absolute Lymphocytes (CBC) 1.9 K/uL (0.7-4.9); Absolute Monocytes 1.3 K/uL (0.1-1.3); Absolute Neutrophil 12.9 K/uL (1.8-8.0); Basophils % 0.6 % (0-1.3); Eosinophils % 1.6 % (0-4.4); Hematocrit 37.9 % (36.0-45.0); Lymphocytes % 11.5 % (15.3-44.8); MPV 7.8 fL (7.6-11.3); RBC Red Blood Cell Count 3.99 M/uL (3.86-4.86)
[2019-02-20 10:00] LABS: BUN Blood Urea Nitrogen 22 mg/dL (7-18); Bicarbonate 31 mmol/L (21-32); Glucose Level 117 mg/dL (74-106); Potassium 3.8 mmol/L (3.5-5.1); Sodium Level 144 mmol/L (136-145)
[2019-02-20] MEDS ORDERED: POTASSIUM 25 MEQ EFFERV TAB PO ONE (10:22)
--- NOTE | 2019-02-20 15:26 | P.PN ---
Subjective Date of Service: 02/20/19 Primary Care Provider: [facility] physician Chief Complaint: Respiratory failure pneumonia Pt seen and examined at bedside with RN. Chart Reviewed. Pt is Alert this morning. Answering appropriately to all questions however disoriented to her surroundings. No fever or chills last night or this AM. Decision made on Hospice. [facility] to take over once pt DC to [place]. WBC is same as yesterday today. Review of Systems 10-point ROS is otherwise unremarkable Physical Examination - Vital Signs Temperature: 97.8 F Blood Pressure: 147/70 Pulse: 102 Respirations: 24 Pulse Ox (%): 94 - Physical Exam General: Alert, In no apparent distress, Demented HEENT: Atraumatic, PERRLA, EOMI Neck: Supple, JVD not distended Respiratory: Normal air movement, Expiratory wheezes, Inspiratory wheezes Cardiovascular: Regular rate/rhythm, Normal S1 S2 Gastrointestinal: Normal bowel sounds, No tenderness Musculoskeletal: No tenderness Integumentary: No rashes Neurological: Normal speech, Normal tone, Normal affect Lymphatics: No axilla or inguinal lymphadenopathy - Studies Medications List Reviewed: Yes Assessment And Plan - Current Problems (Diagnosis) (1) Altered mental status Onset Date: 09/04/17 Current Visit: No Status: Acute Plan: Most Likely Toxic Encephalopathy 2.2 to PNA vs UTI. Improved today. -Pt possibly at her new baseline now. Educated Son regarding the new changes. In agreement now -IV meropenum 04/19. Urine Culture + for Ecoli. No ESBL. Will switch to PO augmentin today. -Elevated WBC again, Most likely Reactive leukocytosis 2.2 to stress. Blood culture negative. xray with Improvement. Repeat Urine culture pending today. -Will Await repeat urine culture results for kian and possible DC on PO abx if culture okay and with Hospice Qualifiers: Altered mental status type: unspecified Qualified Code(s): R41.82 - Altered mental status, unspecified (2) UTI (urinary tract infection) Onset Date: 09/04/17 Current Visit: No Status: Acute Plan: UTI with Urine culture + for ECOLI. NO ESBL. -Sensitive to augmentin. Now switched to PO augmentin -Blood culture negative thus far. Repeat UA with improvement. repeat Urine culture pending Qualifiers: Urinary tract infection type: acute cystitis Hematuria presence: without hematuria Qualified Code(s): N30.00 - Acute cystitis without hematuria (3) Pneumonia Current Visit: Yes Status: Acute Plan: Xray with PNA. Improvement today -Sputum culture unable to be collected as patient is not producing phelgm -On meropenum 04/19. Will switch to augmentin today Qualifiers: Pneumonia type: due to unspecified organism Laterality: unspecified laterality Lung location: unspecified part of lung Qualified Code(s): J18.9 - Pneumonia, unspecified organism (4) HTN (hypertension) Current Visit: Yes Status: Chronic Qualifiers: Hypertension type: essential hypertension Qualified Code(s): I10 - Essential (primary) hypertension (5) CHF (congestive heart failure) Current Visit: Yes Status: Chronic Qualifiers: Heart failure type: systolic Heart failure chronicity: chronic Qualified Code(s): I50.22 - Chronic systolic (congestive) heart failure (6) COPD (chronic obstructive pulmonary disease) Current Visit: Yes Status: Chronic Qualifiers: COPD type: chronic bronchitis Chronic bronchitis type: simple Qualified Code(s): J41.0 - Simple chronic bronchitis - Plan Pending urine culture result kian given WBC still elevated. If urine culture negative or same results as before, pt will be medically cleared for possible DC to NH kian. Son at bedside educated regarding plan of care. Agreed on Hospice today and [facility] Notified. Pt to be enrolled today and possible DC kian on PO abx depending on Urine culture Discharge Plan: Correction Plan to discharge in: 24 Hours - Code Status/Comfort Care Code Status Assessed: Yes Critical Care: No
--- NOTE | 2019-02-20 15:29 | PN ---
Date of Progress Note: 02/20/2019 Subjective: The patient was admitted with pneumonia, altered mental status, hypernatremia, acute kid allison injury. Hypernatremia has been improving. Physical Examination: Vital Signs: Blood pressure 143/96, pulse of 101, afebrile. The patient had good urine output. The patient more awake today. Chest: Crackles right base. Heart: S1, S2. Regular. Systolic murmur. Abdomen: Soft, nontender. Extremities: Trace edema. Laboratory Data: WBC 16.5, H and H 12.3/37.9, platelet 379. Sodium 144, potassium 3.8, bicarb 33, B UN 22, creatinine 0.5, calcium 9.2. Current Medications: The patient is on its include: 1.Meropenem. 2.Aspirin. 3.Lovenox. 4.Hydralazine p.r.n. 5.Ipratropium. 6.Zofran. 7.Levothyroxine. 8.D5 at 70 per hour. 9.Thiamine. Assessment And Plan: 1.Acute kidney injury secondary to prerenal, recovered, resolved. 2.Congestive heart failure, resolved. 3.Pneumonia, currently on meropenem. Continue current treatment. 4.Urinary tract infection secondary to Escherichia coli. Continue meropenem. 5.Hypernatremia. I am going to go ahead and increase D5 to 75 per hour and we will monitor. 6.Hypokalemia, we will supplement. 7.Altered mental status secondary to metabolic encephalopathy, recovered, resolved. We will follow up with the primary. PAOLA Voice ID: [id number] Report ID: [id number]
[2019-02-20] MEDS: AMOX/K CLAV 875 MG TAB PO SCH (21:02)
[2019-02-21] MEDS: D5W 1,000 ML IV SCH ×2 (01:18→13:40)
[2019-02-21] MEDS: LEVOTHYROXINE SOD 0.1 MG TAB PO SCH (06:20)
[2019-02-21] MEDS: THIAMINE 200 MG/2 ML INJ IVP SCH (08:05)
[2019-02-21] MEDS: ENOXAPARIN 40 MG/0.4 ML SQ SCH (08:05)
[2019-02-21] MEDS: LACTOBACILLUS/ACIDOPHILUS TAB PO SCH (08:06)
[2019-02-21] MEDS: AMOX/K CLAV 875 MG TAB PO SCH (08:06)
[2019-02-21] MEDS: ASPIRIN EC 81 MG TAB PO SCH (08:07)
[2019-02-21] MEDS: ANASTROZOLE 1 MG TAB PO SCH (08:07)
[2019-02-21] MEDS: ENSURE ENLIVE 237 ML CAN PO SCH (08:08)
[2019-02-21] MEDS: JUVEN PACKET PO SCH (08:08)
[2019-02-21] MEDS: ARFORMOTEROL TARTRATE 15 MCG/2 ML VIAL.NEB NEB SCH (08:10)
[2019-02-21] MEDS: HYDRALAZINE HCL 20 MG/ML VIAL IV PRN (08:11)
[2019-02-21 10:27] LABS: Absolute Lymphocytes (CBC) 1.6 K/uL (0.7-4.9); Basophils % 0.7 % (0-1.3); Eosinophils % 1.4 % (0-4.4); Hematocrit 37.5 % (36.0-45.0); Lymphocytes % 10.7 % (15.3-44.8); RBC Red Blood Cell Count 3.98 M/uL (3.86-4.86)
[2019-02-21 12:37] VITALS: O2SAT 90
[2019-02-21 12:39] VITALS: BP 139/65; TEMP 97.9
--- NOTE | 2019-02-21 17:30 | P.DS ---
Admission Date: 02/11/19 Discharge Date: 02/21/19 Primary Care Provider: FANY physician Disposition: ROUTINE DISCHARGE Discharge Condition: GOOD Reason for Admission: Respiratory failure pneumonia Consultations: Pulmonology Hospice - Problems (1) Altered mental status Onset Date: 09/04/17 Status: Acute Qualifiers: Altered mental status type: unspecified Qualified Code(s): R41.82 - Altered mental status, unspecified (2) UTI (urinary tract infection) Onset Date: 09/04/17 Status: Acute Qualifiers: Urinary tract infection type: acute cystitis Hematuria presence: without hematuria Qualified Code(s): N30.00 - Acute cystitis without hematuria (3) Pneumonia Status: Acute Qualifiers: Pneumonia type: due to unspecified organism Laterality: unspecified laterality Lung location: unspecified part of lung Qualified Code(s): J18.9 - Pneumonia, unspecified organism (4) HTN (hypertension) Status: Chronic Qualifiers: Hypertension type: essential hypertension Qualified Code(s): I10 - Essential (primary) hypertension (5) CHF (congestive heart failure) Status: Chronic Qualifiers: Heart failure type: systolic Heart failure chronicity: chronic Qualified Code(s): I50.22 - Chronic systolic (congestive) heart failure (6) COPD (chronic obstructive pulmonary disease) Status: Chronic Qualifiers: COPD type: chronic bronchitis Chronic bronchitis type: simple Qualified Code(s): J41.0 - Simple chronic bronchitis Brief History of Present Illness: 78-year-old female presented to the emergency room after she was sent from the senior care due to altered mental status. Most of the information came from the ER physician and son who was at bedside. Son reports that over the past several weeks the patient has been getting weaker. She has had poor oral intake. She has gone from walking to mainly in a wheelchair. He usually sees her 1 to 2 times a week. He reports that the patient was treated for UTI recently. He further reports the patient has Alzheimer's dementia and has been declining in health over the past several weeks to months. Patient with history of COPD, GERD, hypertension, hypothyroidism, prior tobacco use. Patient sent over due to low oxygen saturations of 78%. In the ER patient appeared dehydrated. O2 sats were low. Patient required BiPAP in the emergency room. On lab white count shows 26.8, hemoglobin 15.9. Pro calcitonin and lactic acid were elevated. Troponin also elevated at 0.59. Sodium 154. Potassium 3.5. BUN of 64, creatinine 1.2 with a GFR 41. Glucose 107. Chest x-ray showed right base pneumonia. Patient was stabilized in the emergency room. Patient admitted for further treatment. When I saw the patient ER, she appeared altered in her mental state. She was on BiPAP. Her response to pain was sluggish. Son was at bedside. Hospital Course: Overall during the hospital stay patient remained stable Patient was initially admitted to the hospital for a toxic encephalopathy most likely secondary to sepsis secondary to pneumonia and urinary tract infection. Initially when patient was admitted to the hospital she was started on broad- spectrum antibiotics for her UTI and pneumonia. Patient also was found to have acute respiratory distress at that time and was started on BiPAP as well. Patient had marked improvement over the course of the hospital stay in the 1st 48 hr. During admission patient had a blood culture, urine culture, sputum culture collected spirits before E. coli which sensitive to oral medication. Initially patient was started on IV meropenem which she completed a total of 7 days a or. Her mentation did improve and was found to be at her new baseline with her Alzheimer's dementia on the day of discharge. Patient was switched over to p.o. Augmentin for her pneumonia versus UTI. Again patient did well overall on that medication. Physical therapy occupational therapy was also consulted on the case to work with the patient due to generalized weakness. A detailed discussion was done with the son who is the medical power claims attorney for the patient regarding the further care for the patient in the long-term plan. Hospice care was discussed with the patient and son who was initially not in agreement for hospice however later was agreeable to hospice care. Patient at that time was evaluated by local hospice agency a med and was enrolled and her hospice care. Once patient's white count was trending down can repeat urine culture had no growth and her breathing status was stable patient and was discharged to the senior care under the care of hospice. Patient was continued on Augmentin for another 7 days. Patient will be seen by hospice nursing staff and hospice doctor at the senior care for further care now. Vital Signs/Physical Exam: Temp Pulse Resp BP Pulse Ox 97.9 F 89 20 139/65 92 02/21/19 12:39 02/21/19 12:39 02/21/19 12:39 02/21/19 12:39 02/21/19 12:39 General: Alert, In no apparent distress, Demented HEENT: Atraumatic, PERRLA, EOMI Neck: Supple, JVD not distended Respiratory: Normal air movement, Rhonchi/gurgles Cardiovascular: Regular rate/rhythm, Normal S1 S2 Gastrointestinal: Normal bowel sounds, No tenderness Musculoskeletal: No tenderness Integumentary: No rashes Neurological: Normal speech, Normal tone, Normal affect Lymphatics: No axilla or inguinal lymphadenopathy Laboratory Data at Discharge: WBC 14.9 K/uL (4.3-10.9) H 02/21/19 10:06 Hgb 12.2 g/dL (12.0-15.0) 02/21/19 10:06 Hct 37.5 % (36.0-45.0) 02/21/19 10:06 Plt Count 430 K/uL (152-406) H 02/21/19 10:06 PT 17.7 SECONDS (9.5-12.5) H 02/14/19 03:56 INR 1.52 02/14/19 03:56 APTT 29.6 SECONDS (24.3-36.9) 02/11/19 13:45 Sodium 144 mmol/L (136-145) 02/20/19 09:36 Potassium 3.8 mmol/L (3.5-5.1) 02/20/19 09:36 BUN 22 mg/dL (7-18) H 02/20/19 09:36 Creatinine 0.51 mg/dL (0.55-1.3) L 02/20/19 09:36 Glucose 117 mg/dL (74-106) H 02/20/19 09:36 Uric Acid 6.9 mg/dL (2.6-6.0) H 02/14/19 03:56 Phosphorus 3.1 mg/dL (2.5-4.9) 02/18/19 04:31 Magnesium 2.2 mg/dL (1.8-2.4) 02/18/19 04:31 Total Bilirubin 0.5 mg/dL (0.2-1.0) 02/14/19 03:56 AST 89 U/L (15-37) H 02/14/19 03:56 ALT 25 U/L (12-78) 02/14/19 03:56 Alkaline Phosphatase 65 U/L (45-117) 02/14/19 03:56 Troponin I 0.27 ng/mL (0.0-0.045) H 02/12/19 06:53 Lipase 52 U/L (73-393) L 02/11/19 13:45 Home Medications: Anastrozole [Arimidex*] 1 mg PO DAILY 11/21/13 Aspirin Enteric Coated [ASPIRIN 81 MG EC*] 81 mg PO DAILY 11/21/13 Donepezil HCl [Aricept] 20 mg PO DAILY 11/21/13 Alendronate Sodium [Fosamax] 70 mg PO Q7D 09/04/17 Amlodipine [Norvasc*] 5 mg PO DAILY 09/04/17 Calcium Carbonate/Vitamin D3 [Calcium 600-Vit D3 200 Tablet] 1 tab PO BID Diphenhydramine [Benadryl*] 25 mg PO Q6HP PRN 09/04/17 Enalapril Maleate [Vasotec] 5 mg PO DAILY 09/04/17 Lactobacillus Acidophilus/Pect [Acidophilus-Pectin Capsule] 1 cap PO DAILY 09/04 Levothyroxine Sodium 25 mcg PO DAILY 09/04/17 Levothyroxine Sodium 100 mcg PO DAILY 09/04/17 Loratadine [Claritin*] 10 mg PO DAILYPRN PRN 09/04/17 Mag Hydrox/Al Hydrox/Simeth [Maalox Maximum Strength Susp] 10 ml PO Q12HP PRN Memantine HCl [Namenda Xr] 28 mg PO DAILY 09/04/17 Multivitamin [Multiple Vitamins] 1 tab PO DAILY 09/04/17 Omeprazole 20 mg PO DAILY 09/04/17 Polyethylene Glycol 3350 [Miralax] 17 gm PO Q8HP PRN 09/04/17 Psyllium Husk (with Sugar) [Metamucil Packet] 3.4 gm PO BID 09/04/17 Tiotropium [place] [Spiriva] 18 mcg IH DAILY 09/04/17 Tizanidine [Zanaflex*] 4 mg PO BEDTIME 09/04/17 Patient Discharge Instructions: No new medication. Transfer to [facility] for Hospice care Diet: Regular Activity: Ad magaly Followup: Zuleyma Styles MD [ACTIVE - CAN ADMIT] -
--- NOTE | 2019-02-22 03:19 | PN ---
Date of Progress Note: 02/21/2019 Subjective: The patient was admitted with altered mental status, encephalopathy secondary to UTI, hy pernatremia, acute kidney injury, recovered, the patient on hydration. The patient be tra nsferred to custodial on hospice. Physical Examination: Vital Signs: Blood pressure 139/65, pulse of 89. Chest: Clear to auscultation with faint crackles on the right base. Heart: S1, S2. Regular. Systolic murmur. Abdomen: Soft, nontender. Extremities: Trace edema. Laboratory Data: WBC 14.9, H and H 12.2/37.5. Sodium 144, potassium 3.8, bicarb 11, BUN 22, creatin ine 0.5, calcium 9.2. Assessment And Plan: 1.Acute kidney injury secondary to prerenal, recovered, resolved. 2.Hypernatremia, secondary to depletion, resolved. 3.Congestive heart failure, status post dialysis, back to baseline. 4.Encephalopathy, metabolic, secondary to dehydration, recovered, resolved. PAOLA Voice ID: [id number] Report ID: [id number]
== END 2019-02-21 15:59 | disposition hospice, inpatient (51) | DRG 871 ==
LOC: ER 13:21 → ERHOLD 16:47 → 4TH 19:48
PROVIDERS: ADMIT Family Medicine; ATTEND Family Medicine
PROC: 5A09557 Assistance with Respiratory Ventilation, Greater than 96 Consecutive Hours, Continuous Positive Airway Pressure (ICD-10-PCS; principal; 2019-02-11)
DX: A41.9 Sepsis, unspecified organism (principal); J18.1 Lobar pneumonia, unspecified organism; J96.22 Acute and chronic respiratory failure with hypercapnia; J96.21 Acute and chronic respiratory failure with hypoxia; I21.4 Non-ST elevation (NSTEMI) myocardial infarction; G92 Toxic encephalopathy; J44.0 Chronic obstructive pulmonary disease with (acute) lower respiratory infection; J44.1 Chronic obstructive pulmonary disease with (acute) exacerbation; N17.9 Acute kidney failure, unspecified; E87.0 Hyperosmolality and hypernatremia; E44.0 Moderate protein-calorie malnutrition; N30.00 Acute cystitis without hematuria; I50.22 Chronic systolic (congestive) heart failure; Z51.5 Encounter for palliative care; Z66 Do not resuscitate; E86.0 Dehydration; R65.20 Severe sepsis without septic shock; B96.20 Unspecified Escherichia coli [E. coli] as the cause of diseases classified elsewhere; E87.6 Hypokalemia; E83.52 Hypercalcemia; I11.0 Hypertensive heart disease with heart failure; E03.9 Hypothyroidism, unspecified; G30.9 Alzheimer's disease, unspecified; F02.80 Dementia in other diseases classified elsewhere, unspecified severity, without behavioral disturbance, psychotic disturbance, mood disturbance, and anxiety; K21.9 Gastro-esophageal reflux disease without esophagitis; Z68.29 Body mass index [BMI] 29.0-29.9, adult; Z79.82 Long term (current) use of aspirin; Z87.891 Personal history of nicotine dependence; Z88.5 Allergy status to narcotic agent
CPT/HCPCS: 36415; 51702; 71045; 71250; 74230; 80048; 80053; 80069; 80076; 80164; 80202; 81003; 81015; 82550; 82553; 82805; 82962; 83605; 83615; 83690; 83735; 84132; 84145; 84300; 84439; 84443; 84484; 84550; 85025; 85610; 85730; 87040; 87077; 87086; 87088; 87186; 92526; 92611; 93005; 93306; 94640; 94660; 94760; 96365; 96366; 96375; 97110; 97162; 97166; 97530; 99291; 99292; J0360; J0692; J1650; J1940; J2920; J3370; J3411; J7030; J7605

== ENCOUNTER 2019-06-21 16:51 | Emergency (ER) | payer OTHER ==
--- NOTE | 2019-06-21 17:32 | RAD REPORT ---
EXAM DESCRIPTION: CT - CTHCSPWOC - 06/21/2019 5:23 pm CLINICAL HISTORY: Trauma, head and neck injury. SMASH INJURY COMPARISON: Head C Spine Mpr Wo Con dated 02/22/2018 TECHNIQUE: Axial 5 mm thick images of the head were obtained. Axial 2 mm thick images of the cervical spine were obtained with sagittal and coronal reconstruction images generated and reviewed. All CT scans are performed using dose optimization technique as appropriate and may include automated exposure control or mA/KV adjustment according to patient size. FINDINGS: CT HEAD WITHOUT CONTRAST: No acute hemorrhage, hydrocephalus or extra-axial collection is identified.Advanced generalized brain atrophy is present with advanced periventricular and deep white matter chronic microvascular ischemi c changes.No areas of brain edema or midline shift. The paranasal sinuses and mastoids are clear.Soft tissue swelling is seen left periorbital region.The calvarium is intact. CT CERVICAL SPINE WITHOUT CONTRAST: No fracture or subluxation.Moderate midcervical degenerative changes with central canal stenosis susp ected at C4-5.No prevertebral soft tissues swelling is identified. IMPRESSION: No acute intracranial or cervical spine findings. Moderate midcervical degenerative changes.
--- NOTE | 2019-06-21 17:44 | RAD REPORT ---
EXAM DESCRIPTION: RAD - Forearm Right - 06/21/2019 5:35 pm CLINICAL HISTORY: Pain;Smash injury COMPARISON: <Comparisons> FINDINGS: Prominent osteopenia noted. Vascular calcifications are seen. No acute fracture or disloca tion evident.
[2019-06-21] MEDS ORDERED: DERMABOND SKIN ADHESIVE TOP ONE (18:42)
--- NOTE | 2019-06-21 18:55 | ER ---
Nurse's Notes [facility] Name: Gayla Amado Age: 79 yrs Sex: Female : 1940 Arrival Date: 06/21/2019 Time: 16:53 Bed 26 Private MD: Diagnosis: Fall from chair;Unspecified injury of head;Laceration without foreign body of other part of head-eyebrow Presentation: 06/21 16:54 Presenting complaint: EMS states: Witnessed fall after attempting to get out of la1 wheelchair, fell forward and hit left eyebrow with laceration noted, also C/O right forearm pain. Pt baseline mental status, no LOC, no use of blood thinners. Care prior to arrival: None. Mechanism of Injury: Fall out of chair. Trauma event details: Injury occurred in the [facility]. 16:54 Acuity: ALESSIA 3 la1 16:54 Method Of Arrival: Ambulatory la1 17:01 Transition of care: patient was received from another setting of care (long-term care [facility]), [facility]. Onset of symptoms was June 21, 2019. Risk Assessment: Do you want to hurt yourself or someone else? Patient reports no desire to harm self or others. 17:02 Initial Sepsis Screen: Does the patient meet any 2 criteria? No. Patient's initial la1 sepsis screen is negative. Does the patient have a suspected source of infection? No. Patient's initial sepsis screen is negative. Trauma Activation: Not Applicable Physician: ED Physician; Name: ; Notified At: ; Arrived At: Physician: General Surgeon; Name: ; Notified At: ; Arrived At: Physician: Radiology; Name: ; Notified At: ; Arrived At: Physician: Respiratory; Name: ; Notified At: ; Arrived At: Physician: Lab; Name: ; Notified At: ; Arrived At: Historical: - Allergies: 16:56 Morphine; la1 - PMHx: 16:56 Alzheimers; Anxiety; chest pain; cognitive communication deficit; constipation; COPD; la1 GERD; Hypertension; Hypothyroidism; Osteoporosis; psychosis; - Code Status:: DNAR. - Immunization history: Last tetanus immunization: unknown. - Social history:: Smoking status: unknown. - Ebola Screening: : No symptoms or risks identified at this time. Screenin:58 Abuse screen: Denies threats or abuse. Nutritional screening: No deficits noted. la1 Tuberculosis screening: No symptoms or risk factors identified. Fall risk At risk due to injury, age, prior history of falls. 20:27 Fall Risk Fall in past 12 months (25 points). Gait- Weak (10 pts.). mg2 Primary Survey: 16:56 NO uncontrolled hemorrhage observed. A: The patient is alert. Airway: patent. la1 Breathing/Chest: Respiratory pattern: regular, Respiratory effort: spontaneous, Breath sounds: clear, bilaterally. Circulation: Skin color: pink, Skin temperature: warm. Disability Alert. Exposure/Environment: There is no evidence of uncontrolled external bleeding. 17:00 Reassessment Airway Airway Patent Breathing/Chest Respiratory pattern Regular la1 Respiratory effort Spontaneous Unlabored Circulation Color [place] Temperature Warm Disability Alert. 18:14 A: The patient is alert. Airway: patent. Breathing/Chest: Respiratory pattern: regular, la1 Respiratory effort: spontaneous, unlabored. Circulation: Skin color: pink, Skin temperature: warm. Disability Alert. Secondary Survey: 16:56 HEENT: Face Other Laceration noted to left eyebrow, not bleeding. la1 Assessment: 16:59 General: Appears well nourished, Behavior is cooperative. Pain: Complains of pain in la1 RFA and left eyebrow. Neuro: Level of Consciousness is awake, alert, obeys commands, Oriented to person. Cardiovascular: Capillary refill < 3 seconds is brisk in bilateral fingers Patient's skin is warm and dry. Respiratory: Airway is patent Respiratory effort is even, unlabored, Respiratory pattern is regular, symmetrical. GI: No signs and/or symptoms were reported involving the gastrointestinal system. : No signs and/or symptoms were reported regarding the genitourinary system. Injury Description: Laceration sustained to middle aspect of left eyebrow is 0.5 to 2.5 cm long. 19:08 Reassessment: Patient appears in no apparent distress at this time. No changes from la1 previously documented assessment. Patient and/or family updated on plan of care and expected duration. Pain level reassessed. wound repaired with dermabond, well approximated. 19:09 Reassessment: gave report to kimberly at [facility], she verbalized that her son usually la1 picks her up and she will call him and get back to us. 20:24 Reassessment: [facility] transportation service came and took took the patient by mg2 wheelchair. patient was not in distress. Vital Signs: 16:57 BP 154 / 75; Pulse 104; Resp 16; Pulse Ox 97% on R/A; la1 17:03 Temp 97.8; la1 17:07 BP 153 / 85; mg2 18:15 BP 155 / 74; Pulse 98; Resp 16; Pulse Ox 98% on R/A; la1 19:29 BP 142 / 86; Pulse 94; Resp 16; Temp 99.3(A); Pulse Ox 98% ; lt1 Annalisa Coma Score: 16:57 Eye Response: spontaneous(4). Verbal Response: confused(4). Motor Response: localizes la1 pain(5). Total: 13. 17:00 Eye Response: spontaneous(4). Verbal Response: confused(4). Motor Response: localizes snw pain(5). Total: 13. Trauma Score (Adult): 16:57 Eye Response: spontaneous(1); Verbal Response: confused(1); Motor Response: localizes la1 pain(1); Systolic BP: > 89 mm Hg(4); Respiratory Rate: 10 to 29 per min(4); [place] Score: 13; Trauma Score: 11 18:15 Eye Response: spontaneous(1); Verbal Response: confused(1); Motor Response: localizes la1 pain(1); Systolic BP: > 89 mm Hg(4); Respiratory Rate: 10 to 29 per min(4); [place] Score: 13; Trauma Score: 11 19:09 Eye Response: spontaneous(1); Verbal Response: confused(1); Motor Response: localizes la1 pain(1); Systolic BP: > 89 mm Hg(4); Respiratory Rate: 10 to 29 per min(4); [place] Score: 13; Trauma Score: 11 ED Course: 16:53 Patient arrived in ED. la1 16:54 [facility] sn[facility] 16:54 Enrique Hernandez MD is Attending Physician. snw 16:55 Triage completed. la1 16:58 Call light in reach. Pt placed in front of nursing station. la1 17:00 Arm band placed on left wrist. la1 17:02 Patient maintains SpO2 saturation greater than 95% on room air. la1 17:03 Thermoregulation: warm blanket given to patient. la1 17:06 Alec Hein, RN is Primary Nurse. mg2 17:22 CT Head C Spine In Process Unspecified. EDMS 17:23 CT completed. Patient tolerated procedure well. Patient moved to CT. Patient moved back ca from CT. 17:34 Forearm Right XRAY In Process Unspecified. EDMS 20:26 No provider procedures requiring assistance completed. Patient did not have IV access mg2 during this emergency room visit. Administered Medications: No medications were administered Intake: 20:26 PO: 0ml; Total: 0ml. mg2 Outcome: 18:55 Discharge ordered by . snw 20:25 Discharged to [facility]. Report called to nurse on duty by LEONA Salvador mg2 20:25 Condition: stable 20:25 Discharge instructions given to patient, [facility], Instructed on discharge instructions, follow up and referral plans. Demonstrated understanding of instructions, follow-up care. 20:27 Patient's length of stay in the Emergency Department was greater than 2 hours. awaiting mg2 for transportation to nursing homePatient's length of stay extended due to 20:27 Patient left the ED. mg2 Signatures: Dispatcher [employer] EDAK Rosario Martin, SUPERVISOR DIALS-C SUPERVISOR D[employer] Modesto Domingo RN RN la1 Christiano Schmitz Michele, LEONA RN mg2 [place] [id number] Corrections: (The following items were deleted from the chart) 19:20 19:09 BP 157 / 78; Pulse 94bpm; Resp 16bpm; Pulse Ox 98% RA; la1 la1
--- NOTE | 2019-06-21 18:56 | EDPHYS ---
Physician Documentation [facility] Name: Gayla Amado Age: 79 yrs Sex: Female : 1940 Arrival Date: 06/21/2019 Time: 16:53 Bed 26 Private MD: ED Physician Enrique Hernandez HPI: 06/21 17:04 This 79 yrs old Female presents to ER via Ambulatory with complaints of Fall snw Injury. 17:04 Details of fall: The patient fell from seated position, out of a chair. Onset: The snw symptoms/episode began/occurred suddenly, just prior to arrival. Associated injuries: The patient sustained injury to the head, contusion, hematoma, laceration, 3 cm(s), of the left supraorbital ridge, right forearm, contusion, painful injury. Severity of symptoms: At their worst the symptoms were moderate. It is unknown whether or not the patient has had similar symptoms in the past. It is unknown whether or not the patient has recently seen a physician. no LOC per CT personnel. Historical: - Allergies: 16:56 Morphine; la1 - PMHx: 16:56 Alzheimers; Anxiety; chest pain; cognitive communication deficit; constipation; COPD; la1 GERD; Hypertension; Hypothyroidism; Osteoporosis; psychosis; - Code Status:: DNAR. - Immunization history: Last tetanus immunization: unknown. - Social history:: Smoking status: unknown. - Ebola Screening: : No symptoms or risks identified at this time. ROS: 17:04 Constitutional: Positive for dementia. snw 17:04 MS/extremity: Positive for pain, of the right forearm. 17:04 Unable to obtain ROS due to baseline dementia, CT states pt fell from w/c. No LOC. Exam: 17:00 Eyes: Pupils equal round and reactive to light, extra-ocular motions intact. Lids and snw lashes normal. Conjunctiva and sclera are non-icteric and not injected. Cornea within normal limits. Periorbital areas with no swelling, redness, or edema. ENT: Nares patent. No nasal discharge, no septal abnormalities noted. Tympanic membranes are normal and external auditory canals are clear. Oropharynx with no redness, swelling, or masses, exudates, or evidence of obstruction, uvula midline. Mucous membranes moist. Neck: Trachea midline, no thyromegaly or masses palpated, and no cervical lymphadenopathy. Supple, full range of motion without nuchal rigidity, or vertebral point tenderness. No Meningismus. Chest/axilla: Normal chest wall appearance and motion. Nontender with no deformity. No lesions are appreciated. 17:00 Respiratory: Lungs have equal breath sounds bilaterally, clear to auscultation and percussion. No rales, rhonchi or wheezes noted. No increased work of breathing, no retractions or nasal flaring. Abdomen/GI: Soft, non-tender, with normal bowel sounds. No distension or tympany. No guarding or rebound. No evidence of tenderness throughout. Back: No spinal tenderness. No costovertebral tenderness. Full range of motion. 17:00 Head/face: Noted is contusion, a laceration(s), swelling, that is moderate, of the left side of forehead. 17:00 Cardiovascular: Rate: tachycardic, Rhythm: regular, Pulses: no pulse deficits are appreciated. 17:00 Skin: no acute changes except as noted above. 17:00 Neuro: Orientation: to person, Mentation: confused, Memory: unable to test, seizure activity, is not displayed by the patient. 17:00 Special observations: + dementia, oriented to person. Vital Signs: 16:57 BP 154 / 75; Pulse 104; Resp 16; Pulse Ox 97% on R/A; la1 17:03 Temp 97.8; la1 17:07 BP 153 / 85; mg2 18:15 BP 155 / 74; Pulse 98; Resp 16; Pulse Ox 98% on R/A; la1 19:29 BP 142 / 86; Pulse 94; Resp 16; Temp 99.3(A); Pulse Ox 98% ; lt1 Annalisa Coma Score: 16:57 Eye Response: spontaneous(4). Verbal Response: confused(4). Motor Response: localizes la1 pain(5). Total: 13. 17:00 Eye Response: spontaneous(4). Verbal Response: confused(4). Motor Response: localizes snw pain(5). Total: 13. Trauma Score (Adult): 16:57 Eye Response: spontaneous(1); Verbal Response: confused(1); Motor Response: localizes la1 pain(1); Systolic BP: > 89 mm Hg(4); Respiratory Rate: 10 to 29 per min(4); Jamieson Score: 13; Trauma Score: 11 18:15 Eye Response: spontaneous(1); Verbal Response: confused(1); Motor Response: localizes la1 pain(1); Systolic BP: > 89 mm Hg(4); Respiratory Rate: 10 to 29 per min(4); Annalisa Score: 13; Trauma Score: 11 19:09 Eye Response: spontaneous(1); Verbal Response: confused(1); Motor Response: localizes la1 pain(1); Systolic BP: > 89 mm Hg(4); Respiratory Rate: 10 to 29 per min(4); Annalisa Score: 13; Trauma Score: 11 Laceration: 18:52 Wound Repair of 3cm ( 1.2in ) subcutaneous laceration to left side of forehead. Linear snw shaped.. Distal neuro/vascular/tendon intact. Anesthesia: Local anesthetic administered with 0 mls of 1% lidocaine. Wound prep: Moderate cleansing with hibiclenz by nurse. Skin closed with thin layer Adhesive skin closure using Dermabond. Dressed with none. Patient tolerated well. MDM: 16:55 Patient medically screened. snw 18:56 Data reviewed: vital signs, nurses notes. Data interpreted: Pulse oximetry: on room air snw is 98 %. Interpretation: normal. Counseling: I had a detailed discussion with the patient and/or guardian regarding: the historical points, exam findings, and any diagnostic results supporting the discharge/admit diagnosis, radiology results, the need for outpatient follow up, to return to the emergency department if symptoms worsen or persist or if there are any questions or concerns that arise at home. Response to treatment: the patient's symptoms have markedly improved after treatment. Special discussion: I have referred the patient to see his PCP for further evaluation of high blood pressure. Based on the patient's history, exam and DX evaluation, there is no indication for emergent intervention or inpatient TX. It is understood by the patient/guardian that if the SXs persist or worsen they need to return immediately for re-evaluation. Based on the history and exam findings, there is no indication for further emergent testing or inpatient evaluation. I discussed with the patient/guardian the need to see the primary care provider for further evaluation of the symptoms. 06/21 17:00 Order name: CT Head C Spine; Complete Time: 17:41 snw 06/21 17:00 Order name: Forearm Right XRAY; Complete Time: 17:46 snw 06/21 17:00 Order name: Wound Care; Complete Time: 18:10 snw Administered Medications: No medications were administered Disposition: 06/21/19 18:55 Discharged to Home. Impression: Fall from chair, Unspecified injury of head, Laceration without foreign body of other part of head - eyebrow. - Condition is Stable. - Discharge Instructions: Tissue Adhesive Wound Care, Head Injury, Adult, Fall Prevention in Hospitals, Adult. - Medication Reconciliation Form, Thank You Letter, Antibiotic Education, Prescription Opioid Use form. - Follow up: Private Physician; When: 2 - 3 days; Reason: Recheck today's complaints, Continuance of care, Re-evaluation by your physician. Follow up: Emergency Department; When: As needed; Reason: Worsening of condition. Addendum: 06/24/2019 09:27 Co-signature as Attending Physician, Enrique Hernandez MD I agree with the assessment and k dr plan of care. Signatures: Dispatcher [employer] EDRI Enrique Hernandez MD MD [facility] Rosario Martin, INFO SPECIALIST-C INFO SPECIALIST-[facility] Modesto Domingo RN RN la1 Alec Hein RN RN mg2 Corrections: (The following items were deleted from the chart) 06/21 20:27 18:55 06/21/2019 18:55 Discharged to Home. Impression: Fall from chair; Unspecified mg2 injury of head; Laceration without foreign body of other part of head - eyebrow. Condition is Stable. Forms are Medication Reconciliation Form, Thank You Letter, Antibiotic Education, Prescription Opioid Use. Follow up: Private Physician; When: 2 - 3 days; Reason: Recheck today's complaints, Continuance of care, Re-evaluation by your physician. Follow up: Emergency Department; When: As needed; Reason: Worsening of condition. snw
[2019-06-21 21:36] VITALS: O2SAT 98
[2019-06-21 21:37] VITALS: BP 142/86; TEMP 99.3
== END 2019-06-21 20:27 | disposition home or self-care (01) ==
LOC: ER 16:51
PROC: 0JQ10ZZ Repair Face Subcutaneous Tissue and Fascia, Open Approach (ICD-10-PCS; principal; 2019-06-21)
DX: S01.112A Laceration without foreign body of left eyelid and periocular area, initial encounter (principal); W07.XXXA Fall from chair, initial encounter; Y93.89 Activity, other specified; Y92.9 Unspecified place or not applicable; Z88.5 Allergy status to narcotic agent; I10 Essential (primary) hypertension; G30.9 Alzheimer's disease, unspecified; F02.80 Dementia in other diseases classified elsewhere, unspecified severity, without behavioral disturbance, psychotic disturbance, mood disturbance, and anxiety
CPT/HCPCS: 70450; 72125; 73090; 99284; 12013; G0168